=== PATIENT | male | born 1965 | race African-American/Black ===

== ENCOUNTER 2017-01-20 10:14 | Inpatient (IN) | payer OTHER ==
[2017-01-20 12:50] VITALS: BMI 19.0
--- NOTE | 2017-01-20 14:25 | HP ---
CIWA Score - CIWA Score Nausea/Vomitin-Int. Nausea w/Dry Heave Muscle Tremors: 4-Moderate,w/Arms Extend Anxiety: 4-Mod. Anxious/Guarded Agitation: 4-Moderately Restless Paroxysmal Sweats: 1-Minimal Palms Moist Orientation: 0-Oriented Tacttile Disturbances: 3-Moderate Itch/Numb/Burn Auditory Disturbances: 0-None Visual Disturbances: 0-None Headache: 1-Very Mild CIWA-Ar Total Score: 21 Admission ROS BHS - HPI Chief Complaint: DETOX TX FOR ALCOHOL DEPENDENCE Allergies/Adverse Reactions: Allergies Allergy/AdvReac Type Severity Reaction Status Date / Time No Known Allergies Allergy Verified 01/20/17 13:19 History of Present Illness: 51 Y/O AA/MALE WITH A HX OF ALCOHOL AND CRACK DEPENDENCE SEEKING DETOX TX Exam Limitations: No Limitations - Ebola screening Have you traveled outside of the country in the last 21 days: No Have you had contact with anyone from an Ebola affected area: No Have you been sick,other than usual withdrawal symptoms: No - Review of Systems Constitutional: Loss of Appetite, Night Sweats, Changes in sleep, Unintentional Wgt. Loss EENT: reports: Blurred Vision, Hearing Loss (BOTH EARS), Dental Problems ( MISSING TEETH) Respiratory: reports: Shortness of Breath (HX ASTHMA), Wheezing Cardiac: reports: Lightheadedness GI: reports: Constipated, Diarrhea, Nausea, Poor Appetite, Poor Fluid Intake, Indigestion, Abdominal cramping : reports: Dysuria Musculoskeletal: reports: Back Pain, Joint Pain, Muscle Pain Integumentary: reports: No Symptoms Reported Neuro: reports: Headache, Tremors, Unsteady Gait, Dizziness Endocrine: reports: No Symptoms Reported Hematology: reports: Anemia Psychiatric: reports: Orientated x3, Anxious Other Systems: Reviewed and Negative Patient History - Patient Medical History Hx Anemia: Yes (NO MEDS) Hx Asthma: Yes (MDI) Hx Chronic Obstructive Pulmonary Disease (COPD): No Hx Cancer: No Hx Cardiac Disorders: Yes ([place] X 1 IN 2014-[facility]; IRREGULAR HR ) Hx Congestive Heart Failure: No Hx Hypertension: No Hx Hypercholesterolemia: Yes (NO MED) Hx Pacemaker: No HX Cerebrovascular Accident: No Hx Seizures: No Hx Dementia: No Hx Diabetes: No Hx Gastrointestinal Disorders: Yes (GERD-FORGOT NAME OF MED;OVER A YEAR AGO.) Hx Liver Disease: No Hx Genitourinary Disorders: No Hx Sexually Transmitted Disorders: No Hx Renal Disease (ESRD): No Hx Thyroid Disease: No Hx Human Immunodeficiency Virus (HIV): No (NEGATIVE HX) Hx Hepatitis C: No (NEGATIVE) Hx Depression: Yes (ON PAXIL) Hx Suicide Attempt: No (DENIES) Hx Bipolar Disorder: Yes Hx Schizophrenia: No - Patient Surgical History Past Surgical History: Yes Hx Neurologic Surgery: No Hx Cataract Extraction: No Hx Cardiac Surgery: No Hx Lung Surgery: No Hx Breast Surgery: No Hx Breast Biopsy: No Hx Abdominal Surgery: Yes (hernia repair 2004) Hx Appendectomy: No Hx Cholecystectomy: No Hx Genitourinary Surgery: No Hx Section: No Hx Orthopedic Surgery: Yes (LT ARM fx 10 YRS old) Other Surgical History: left inguinal hernia repair Anesthesia Reaction: No - PPD History Previous Implant?: Yes Documented Results: Negative w/proof Implanted On Prior [facility] Admission?: Yes Date: 02/25/16 Results: 0 mm PPD to be Administered?: No - Reproductive History Patient is a Female of Child Bearing Age (11 -55 yrs old): No (MALE) - Smoking Cessation Smoking history: Current every day smoker Have you smoked in the past 12 months: Yes Aproximately how many cigarettes per day: 6 Hx Chewing Tobacco Use: No Initiated information on smoking cessation: Yes 'Breaking Loose' booklet given: 01/20/17 - Substance & Tx. History Hx Alcohol Use: Yes (BEER/VODKA) Hx Substance Use: Yes (CRACK) Substance Use Type: Alcohol, Cocaine Hx Substance Use Treatment: Yes ([facility]DETOX) - Substances Abused Alcohol Route: Oral Frequency: Daily Amount used: vodka(2 pints)/beer(1 case-24 oz cans) Age of first use: 26 Date of Last Use: 01/18/17 Cocaine Route: Smoking Frequency: Daily Amount used: $60 Age of first use: 31 Date of Last Use: 01/18/17 Family Disease History - Family Disease History Family Disease History: Heart Disease: Mother (arthritis, of heart attack), Other: Mother Admission Physical Exam BHS - Vital Signs Vital Signs: Vital Signs - 24 hr 01/20/17 12:48 Temperature 98 F Pulse Rate 75 Respiratory 20 Rate Blood Pressure 135/61 - Physical General Appearance: Yes: Moderate Distress, Irritable, Anxious HEENTM: Yes: EOMI, Normocephalic, [place], Pharynx Normal Respiratory: Yes: Chest Non-Tender, Lungs Clear, Normal Breath Sounds, No Respiratory Distress Neck: Yes: Supple, Trachea in good position Breast: Yes: Breast Exam Deferred Cardiology: Yes: Regular Rhythm, Regular Rate, S1, S2 Abdominal: Yes: Normal Bowel Sounds, Non Tender, Flat, Soft Genitourinary: Yes: Other (N/C) Back: Yes: Within Normal Limits Musculoskeletal: Yes: full range of Motion, Gait Steady Extremities: Yes: Normal Range of Motion, Non-Tender, Tremors 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 (3) Nicotine dependence Current Visit: Yes Status: Acute Qualifiers: Nicotine product type: cigarettes Substance use status: in withdrawal Qualified Code(s): F17.213 - Nicotine dependence, cigarettes, with withdrawal (4) Asthma Current Visit: Yes Status: Chronic Qualifiers: Asthma severity: mild intermittent (5) History of anemia Current Visit: Yes Status: Suspected (6) GERD (gastroesophageal reflux disease) Current Visit: Yes Status: Suspected Qualifiers: Esophagitis presence: without esophagitis Qualified Code(s): K21.9 - Gastro-esophageal reflux disease without esophagitis Comment: NO CURRENT MED (7) History of hypercholesterolemia Current Visit: Yes Status: Suspected Comment: NO MEDS (8) Status post myocardial infarction Current Visit: Yes Status: Resolved Cleared for Admission [facility] - Detox or Rehab [facility] Level of Care: Medically Managed Detox Regimen/Protocol: Librium [facility] Breath Alcohol Content Breath Alcohol Content: 0 Urine Drug Screen - Results Drug Screen Negative: No Urine Drug Screen Results: MTD-Methadone
[2017-01-20] MEDS ORDERED: MAG HYDROX/AL HYDROX/SIMETH 30 ML UNIT-DOSE CUP PO PRN (14:35)
[2017-01-20] MEDS ORDERED: NICOTINE POLACRILEX 2 MG GUM BC PRN (14:35)
[2017-01-20] MEDS ORDERED: LOPERAMIDE HCL 2 MG CAPSULE PO PRN (14:35)
[2017-01-20] MEDS ORDERED: MENTHOL/PHENOL 1 EACH UD MM PRN (14:35)
[2017-01-20] MEDS ORDERED: MAGNESIUM HYDROX 2400MG/30ML ORAL SUSPENSION 30 ML CUP PO PRN (14:35)
[2017-01-20] MEDS ORDERED: chlordiazePOXIDE HCL 25 MG CAPSULE PO PRN (14:35)
[2017-01-20] MEDS ORDERED: ACETAMINOPHEN 325 MG TABLET (FP) PO PRN (14:35)
[2017-01-20] MEDS ORDERED: guaiFENesin/D-METHORPHAN HB 10 ML UNIT-DOSE CUPS PO PRN (14:35)
[2017-01-20] MEDS ORDERED: P-EPHED 60MG/TRIPROLIDI 2.5MG TABLET PO PRN (14:35)
[2017-01-20] MEDS ORDERED: IBUPROFEN 400 MG TABLET (FP) PO PRN (14:35)
[2017-01-20] MEDS ORDERED: MAGNESIUM CITRATE 300 ML BOTTLE PO PRN (14:35)
[2017-01-20] MEDS ORDERED: hydrOXYzine PAMOATE 25 MG CAPSULE (FP) PO PRN (14:35)
[2017-01-20] MEDS ORDERED: ALBUTEROL SO4 6.7 GM HFA INHALER IH PRN (14:37)
[2017-01-20] MEDS ORDERED: chlordiazePOXIDE HCL 25 MG CAPSULE PO ONE (16:00)
[2017-01-20] MEDS: chlordiazePOXIDE HCL 25 MG CAPSULE PO SCH ×2 (17:55→22:43)
[2017-01-20] MEDS: THIAMINE HCL 100 MG TABLET (FP) PO SCH (22:43)
[2017-01-21 03:05] LABS: URINE APPEARANCE CLEAR; URINE BILIRUBIN NEGATIVE (NEGATIVE); URINE BLOOD NEGATIVE (NEGATIVE); URINE COLOR LTYELLOW; URINE GLUCOSE (UA) NEGATIVE (NEGATIVE); URINE KETONE NEGATIVE (NEGATIVE); URINE LEUK ESTERASE NEGATIVE (NEGATIVE); URINE NITRITE NEGATIVE (NEGATIVE); URINE PROTEIN NEGATIVE (NEGATIVE); URINE UROBILINOGEN NEGATIVE E.U./dl (0.2-1.0)
[2017-01-21] MEDS: chlordiazePOXIDE HCL 25 MG CAPSULE PO SCH ×4 (05:51→22:22)
[2017-01-21] MEDS ORDERED: METHADONE HCL 40 MG DISPERSABLE TABLET PO ONE (09:07)
[2017-01-21 10:06] LABS: MCH 33.2 pg (25.7-33.7); MCHC 34.9 g/dl (32.0-35.9); MEAN CELL VOLUME 94.9 fl (80-96); MEAN PLT VOLUME 8.6 fl (7.5-11.1); PLATELET COUNT 295 K/MM3 (134-434); RDW 13.9 % (11.9-15.9); WHITE BLOOD COUNT 3.8 K/mm3 (4.0-10.0)
[2017-01-21 10:29] LABS: ALBUMIN 3.6 g/dl (3.4-5.0); ALK PHOS 135 U/L (45-117); ANION GAP 10 (8-16); BILIRUBIN,TOTAL 0.3 mg/dL (0.2-1.0); CO2 26 mmol/L (21-32); COCKROFT - GAULT 83.63; CREATININE 0.8 mg/dL (0.7-1.3); GLUCOSE,RANDOM 120 mg/dL (74-106); SGOT/AST 30 U/L (15-37); SGPT/ALT 44 U/L (12-78); TOT PROT 7.7 g/dl (6.4-8.2)
--- NOTE | 2017-01-21 10:30 | PN ---
[facility] CIWA - CIWA Score Nausea/Vomitin Muscle Tremors: 3 Anxiety: 3 Agitation: 2 Paroxysmal Sweats: 1-Minimal Palms Moist Orientation: 0-Oriented Tacttile Disturbances: 1-Very Mild Itch/Numbness Auditory Disturbances: 1-Very Mild Visual Disturbances: 1-Very Mild Sensitivity Headache: 2-Mild CIWA-Ar Total Score: 17 BHS Progress Note (SOAP) Subjective: ALERT,IRRITABLE,ANXIOUS,INTERRUPTED SLEEP,TREMOR Objective: 01/21/17 10:28 Vital Signs Temperature 96.8 F L 01/21/17 10:00 Pulse Rate 83 01/21/17 10:00 Respiratory Rate 16 01/21/17 10:00 Blood Pressure 132/68 01/21/17 10:00 O2 Sat by Pulse Oximetry (%) EKG NSR,LVH,INVERTED T IN V4 TO V6 Laboratory Last Values WBC 3.8 K/mm3 (4.0-10.0) L 01/21/17 06:00 RBC 3.89 M/mm3 (4.00-5.60) L 01/21/17 06:00 Hgb 12.9 GM/dL (11.7-16.9) 01/21/17 06:00 Hct 37.0 % (35.4-49) 01/21/17 06:00 MCV 94.9 fl (80-96) 01/21/17 06:00 MCHC 34.9 g/dl (32.0-35.9) 01/21/17 06:00 RDW 13.9 % (11.9-15.9) 01/21/17 06:00 Plt Count 295 K/MM3 (134-434) 01/21/17 06:00 MPV 8.6 fl (7.5-11.1) D 01/21/17 06:00 Urine Color Ltyellow 01/20/17 23:24 Urine Appearance Clear 01/20/17 23:24 Urine pH 8.0 (5.0-8.0) 01/20/17 23:24 Ur Specific [place] 1.010 (1.001-1.035) 01/20/17 23:24 Urine Protein Negative (NEGATIVE) 01/20/17 23:24 Urine Glucose (UA) Negative (NEGATIVE) 01/20/17 23:24 Urine Ketones Negative (NEGATIVE) 01/20/17 23:24 Urine Blood Negative (NEGATIVE) 01/20/17 23:24 Urine Nitrite Negative (NEGATIVE) 01/20/17 23:24 Urine Bilirubin Negative (NEGATIVE) 01/20/17 23:24 Urine Urobilinogen Negative E.U./dl (0.2-1.0) 01/20/17 23:24 Ur Leukocyte Esterase Negative (NEGATIVE) 01/20/17 23:24 LABS PENDING Assessment: 01/21/17 10:30 WITHDRAWAL SYMPTOM Plan: CONTINUE DETOX
[2017-01-21] MEDS: NICOTINE 14 MG/24 HOURS TOPICAL PATCH TD SCH ×2 (10:39)
[2017-01-21] MEDS: PRENATAL VITAMINS W/ FOLIC ACID TABLET (FP) PO SCH (10:39)
--- NOTE | 2017-01-21 11:29 | CONSULT ---
[facility] Psychiatric Consult - Data Date of interview: 01/21/17 Admission source: [facility] Identifying data: Another admission to [facility] for this 51 y/o AA male seeking detox treatment for alcohol and cocaine dependence.Patient is single without children,domiciled,unemployed and supported on SSI benefits. Substance Abuse History: - Smoking Cessation. Smoking history: Current every day smoker. Have you smoked in the past 12 months: Yes. Aproximately how many cigarettes per day: 6. Hx Chewing Tobacco Use: No. Initiated information on smoking cessation: Yes. 'Breaking Loose' booklet given: 01/20/17. - Substance & Tx. History. Hx Alcohol Use: Yes (BEER/VODKA). Hx Substance Use: Yes (CRACK) . Substance Use Type: Alcohol, Cocaine. Hx Substance Use Treatment: Yes ([facility] -DETOX). - Substances Abused. Alcohol. Route: Oral. Frequency: Daily. Amount used: vodka(2 pints)/beer(1 case-24 oz cans). Age of first use: 26. Date of Last Use: 01/18/17. Cocaine. Route: Smoking. Frequency: Daily. Amount used: $60. Age of first use: 31. Date of Last Use: 01/18/17 Medical History: Bronchial asthma,hypercholesterolemia,prior left inguinal herniorraphy,anemia,GERD,osteoarthritis and a past history of myocardial infarction in 2013 (treated at [facility]). Psychiatric History: No history of psychiatric hospitalizations.First contact with Psychiatry : 2002.Diagnosed with MDD/Anxiety Disorder.Prescribed paxil ( dose not recalled).Mr Serrato reports no affiliation with mental health OPD providers for " more than a year ." No medications.He gets occasional scripts for paroxetine (20 mg/day) from his primary care physician at the [facility].Patient is still on methadone maintenance (40 mg/day) at the [facility] MMTP program.No history of suicide attempts. Physical/Sexual Abuse/Trauma History: No history. Additional Comment: Urine Drug Screen Results: MTD-Methadone.Noted. Mental Status Exam - Mental Status Exam Alert and Oriented to: Time, Place, Person Cognitive Function: Good Patient Appearance: Well Groomed (thin frame) Mood: Withdrawn, Anxious, Hopeful Affect: Mood Congruent Patient Behavior: Fatigued, Appropriate, Cooperative Speech Pattern: Clear Voice Loudness: Normal Thought Process: Goal Oriented Thought Disorder: Not Present Hallucinations: Denies Suicidal Ideation: Denies Homicidal Ideation: Denies Insight/Judgement: Poor Sleep: Fair Appetite: Good Muscle strength/Tone: Normal Gait/Station: Normal Psychiatric Findings - Problem List ([place] 1, 2,3) (1) Alcohol dependence with uncomplicated withdrawal Current Visit: Yes Status: Acute (2) Cocaine dependence Current Visit: Yes Status: Acute (3) Opioid dependence on agonist therapy Current Visit: Yes Status: Acute (4) Nicotine dependence Current Visit: Yes Status: Acute Qualifiers: Nicotine product type: cigarettes Substance use status: in withdrawal Qualified Code(s): F17.213 - Nicotine dependence, cigarettes, with withdrawal (5) Substance induced mood disorder Current Visit: Yes Status: Acute (6) Mood disorder Current Visit: Yes Status: Chronic (7) Asthma Current Visit: Yes Status: Chronic Qualifiers: Asthma severity: mild intermittent (8) History of anemia Current Visit: Yes Status: Suspected - Initial Treatment Plan Initial Treatment Plan: Psychoeducation done.Detoxification in progress.Medication (patient's request) : paxil 10 mg po daily.Side effects/ benefits discussed with patient.Observation.
[2017-01-21 12:58] LABS: HIV 1 & 2 AB NEGATIVE; HIV 1 AGp24 NEGATIVE
--- NOTE | 2017-01-21 13:15 | EKG ---
Test Reason : Blood Pressure : / mmHG Vent. Rate : 068 BPM Atrial Rate : 068 BPM P-R Int : 182 ms QRS Dur : 092 ms QT Int : 414 ms P-R-T Axes : 064 051 053 degrees QTc Int : 440 ms NORMAL SINUS RHYTHM MINIMAL VOLTAGE CRITERIA FOR LVH, MAY BE NORMAL VARIANT NONSPECIFIC T WAVE ABNORMALITY ABNORMAL ECG NO PREVIOUS ECGS AVAILABLE Confirmed by KRISH MCDOWELL, DONNA ([id number]) on 01/21/2017 1:15:01 PM Referred By: Confirmed By:DONNA RUTHERFORD MD
[2017-01-21] MEDS: THIAMINE HCL 100 MG TABLET (FP) PO SCH (22:22)
[2017-01-21] MEDS: diphenhydrAMINE HCL 50 MG CAPSULE PO PRN (22:22)
[2017-01-22] MEDS: METHADONE HCL 40 MG DISPERSABLE TABLET PO SCH (05:25)
[2017-01-22] MEDS: chlordiazePOXIDE HCL 25 MG CAPSULE PO SCH ×2 (05:25→10:12)
[2017-01-22] MEDS: PRENATAL VITAMINS W/ FOLIC ACID TABLET (FP) PO SCH (10:11)
[2017-01-22] MEDS: PARoxetine HCL 10 MG TABLET (FP) PO SCH (10:12)
[2017-01-22] MEDS: NICOTINE 14 MG/24 HOURS TOPICAL PATCH TD SCH (10:12)
--- NOTE | 2017-01-22 10:15 | PN ---
S CIWA - CIWA Score Nausea/Vomitin Muscle Tremors: 3 Anxiety: 3 Agitation: 2 Paroxysmal Sweats: 1-Minimal Palms Moist Orientation: 0-Oriented Tacttile Disturbances: 1-Very Mild Itch/Numbness Auditory Disturbances: 1-Very Mild Visual Disturbances: 1-Very Mild Sensitivity Headache: 2-Mild CIWA-Ar Total Score: 17 BHS Progress Note (SOAP) Subjective: ALERT,IRRITABLE,ANXIOUS,INTERRUPTED SLEEP,TREMOR Objective: 01/22/17 10:13 Vital Signs Temperature 98.1 F 01/22/17 05:53 Pulse Rate 76 01/22/17 05:53 Respiratory Rate 18 01/22/17 05:53 Blood Pressure 127/61 01/22/17 05:53 O2 Sat by Pulse Oximetry (%) Laboratory Last Values WBC 3.8 K/mm3 (4.0-10.0) L 01/21/17 06:00 RBC 3.89 M/mm3 (4.00-5.60) L 01/21/17 06:00 Hgb 12.9 GM/dL (11.7-16.9) 01/21/17 06:00 Hct 37.0 % (35.4-49) 01/21/17 06:00 MCV 94.9 fl (80-96) 01/21/17 06:00 MCHC 34.9 g/dl (32.0-35.9) 01/21/17 06:00 RDW 13.9 % (11.9-15.9) 01/21/17 06:00 Plt Count 295 K/MM3 (134-434) 01/21/17 06:00 MPV 8.6 fl (7.5-11.1) D 01/21/17 06:00 Sodium 138 mmol/L (136-145) 01/21/17 06:00 Potassium 4.3 mmol/L (3.5-5.1) 01/21/17 06:00 Chloride 102 mmol/L (98-107) 01/21/17 06:00 Carbon Dioxide 26 mmol/L (21-32) 01/21/17 06:00 Anion Gap 10 (8-16) 01/21/17 06:00 BUN 11 mg/dL (7-18) D 01/21/17 06:00 Creatinine 0.8 mg/dL (0.7-1.3) 01/21/17 06:00 Creat Clearance w eGFR > 60 (>60) 01/21/17 06:00 Random Glucose 120 mg/dL (74-106) H D 01/21/17 06:00 Calcium 9.0 mg/dL (8.5-10.1) 01/21/17 06:00 Total Bilirubin 0.3 mg/dL (0.2-1.0) 01/21/17 06:00 AST 30 U/L (15-37) D 01/21/17 06:00 ALT 44 U/L (12-78) D 01/21/17 06:00 Alkaline Phosphatase 135 U/L (45-117) H D 01/21/17 06:00 Total Protein 7.7 g/dl (6.4-8.2) 01/21/17 06:00 Albumin 3.6 g/dl (3.4-5.0) 01/21/17 06:00 Urine Color Ltyellow 01/20/17 23:24 Urine Appearance Clear 01/20/17 23:24 Urine pH 8.0 (5.0-8.0) 01/20/17 23:24 Ur Specific [place] 1.010 (1.001-1.035) 01/20/17 23:24 Urine Protein Negative (NEGATIVE) 01/20/17 23:24 Urine Glucose (UA) Negative (NEGATIVE) 01/20/17 23:24 Urine Ketones Negative (NEGATIVE) 01/20/17 23:24 Urine Blood Negative (NEGATIVE) 01/20/17 23:24 Urine Nitrite Negative (NEGATIVE) 01/20/17 23:24 Urine Bilirubin Negative (NEGATIVE) 01/20/17 23:24 Urine Urobilinogen Negative E.U./dl (0.2-1.0) 01/20/17 23:24 Ur Leukocyte Esterase Negative (NEGATIVE) 01/20/17 23:24 RPR Titer Nonreactive (NONREACTIVE) 01/21/17 06:00 HIV 1&2 Antibody Screen Negative 01/20/17 14:00 HIV P24 Antigen Negative 01/20/17 14:00 Assessment: 01/22/17 10:14 WITHDRAWAL SYMPTOM Plan: CONTINUE DETOX,BGM MONITORING,INITIAL GLUCOSE IS 120
[2017-01-22] MEDS: chlordiazePOXIDE 5 MG CAPSULE PO SCH ×2 (17:32→22:01)
[2017-01-22] MEDS: diphenhydrAMINE HCL 50 MG CAPSULE PO PRN (22:01)
[2017-01-22] MEDS: THIAMINE HCL 100 MG TABLET (FP) PO SCH (22:01)
[2017-01-23] MEDS: METHADONE HCL 40 MG DISPERSABLE TABLET PO SCH (06:00)
[2017-01-23] MEDS: chlordiazePOXIDE 5 MG CAPSULE PO SCH ×2 (06:00→11:10)
[2017-01-23] MEDS: PRENATAL VITAMINS W/ FOLIC ACID TABLET (FP) PO SCH (11:10)
[2017-01-23] MEDS: NICOTINE 14 MG/24 HOURS TOPICAL PATCH TD SCH (11:10)
[2017-01-23] MEDS: PARoxetine HCL 10 MG TABLET (FP) PO SCH (11:10)
--- NOTE | 2017-01-23 11:38 | PN ---
S Progress Note (SOAP) Subjective: ALERT,IRRITABLE,ANXIOUS,INTERRUPTED SLEEP Objective: 01/23/17 11:38 Vital Signs Temperature 97.3 F L 01/23/17 09:53 Pulse Rate 74 01/23/17 09:53 Respiratory Rate 18 01/23/17 09:53 Blood Pressure 121/70 01/23/17 09:53 O2 Sat by Pulse Oximetry (%) 01/23/17 11:39 BGM 286 Assessment: 01/23/17 11:39 WITHDRAWAL SYMPTOM Plan: NCS DIET,D/C ENSURE,GLUCERNA 1 CAN PO BID,BGM MONITORING DISCHARGE IN AM
[2017-01-23] MEDS: chlordiazePOXIDE HCL 10 MG CAPSULE PO SCH ×2 (17:37→22:45)
[2017-01-23] MEDS: THIAMINE HCL 100 MG TABLET (FP) PO SCH (22:45)
[2017-01-23] MEDS: diphenhydrAMINE HCL 50 MG CAPSULE PO PRN (22:45)
[2017-01-24] MEDS: chlordiazePOXIDE HCL 10 MG CAPSULE PO SCH ×2 (05:10→10:13)
[2017-01-24] MEDS: METHADONE HCL 40 MG DISPERSABLE TABLET PO SCH (05:10)
[2017-01-24 06:19] VITALS: PULSE 82
--- NOTE | 2017-01-24 08:17 | PN ---
S Progress Note (SOAP) Subjective: ALERT,NO COMPLAINT Objective: 01/24/17 08:14 Vital Signs Temperature 97.9 F 01/24/17 06:19 Pulse Rate 82 01/24/17 06:19 Respiratory Rate 18 01/24/17 06:19 Blood Pressure 125/66 01/24/17 06:19 O2 Sat by Pulse Oximetry (%) Assessment: 01/24/17 08:15 DETOX COMPLETED,NO WITHDRAWAL SYMPTOM Plan: DISCHARGE TODAY,FOLLOW UP WITH AFTER CARE PROGRAM ARRANGEMENT
--- NOTE | 2017-01-24 08:22 | DS ---
[facility] Detox Discharge Summary Admission Date: 01/20/17 Discharge Date: 01/24/17 - History Present History: Alcohol Dependence, MMTP Additional Comments: FOLLOW UP WITH AFTER CARE PROGRAM ARRANGEMENT Pertinent Past History: ASTHMA DEPRESSION - Physical Exam Results Vital Signs: Vital Signs Temperature 97.9 F 01/24/17 06:19 Pulse Rate 82 01/24/17 06:19 Respiratory Rate 18 01/24/17 06:19 Blood Pressure 125/66 01/24/17 06:19 O2 Sat by Pulse Oximetry (%) Pertinent Admission Physical Exam Findings: WITHDRAWAL SYMPTOM - Treatment Hospital Course: Detox Protocol Followed, Detoxed Safely, Responded well, Discharged Condition Good Patient has Accepted a Rehab Referral to: DECLINED - Medication Discharge Medications: Ambulatory Orders Albuterol Sulfate Inhaler - [Ventolin HFA Inhaler -] 2 inh PO Q4H PRN 09/10/13 Paroxetine HCl [Paxil -] 20 mg PO DAILY #30 tablet 08/15/16 Paroxetine HCl [Paxil] 10 mg PO DAILY #30 ml 01/21/17 - Diagnosis (1) Alcohol dependence with uncomplicated withdrawal Current Visit: Yes Status: Acute (2) Cocaine dependence Current Visit: Yes Status: Acute (3) Nicotine dependence Current Visit: Yes Status: Acute Qualifiers: Nicotine product type: cigarettes Substance use status: in withdrawal Qualified Code(s): F17.213 - Nicotine dependence, cigarettes, with withdrawal (4) Opioid dependence on agonist therapy Current Visit: Yes Status: Acute (5) Asthma Current Visit: Yes Status: Chronic Qualifiers: Asthma severity: mild intermittent (6) MDD (major depressive disorder) Current Visit: No Status: Acute - AMA Did Patient Leave Against Medical Advice: No
--- NOTE | 2017-01-24 08:31 | PN ---
[facility] Progress Note Note: ADDENDUM BGM IS 115,INITIAL GLUCOSE IS 120,HAS ONE SPIKE OF BGM 286 ADVISE DIET MODIFICATION,FOLLOW UP WITH PMD FOR MEDICAL PROBLEM AND FOLLOW UP FOR GLUCOSE MONITORING
[2017-01-24] MEDS: PARoxetine HCL 10 MG TABLET (FP) PO SCH (10:13)
[2017-01-24] MEDS: PRENATAL VITAMINS W/ FOLIC ACID TABLET (FP) PO SCH (10:14)
[2017-01-24] MEDS: NICOTINE 14 MG/24 HOURS TOPICAL PATCH TD SCH (10:14)
[2017-01-24 11:48] VITALS: BP 120/66; TEMP 97.7
== END 2017-01-24 13:35 | disposition other institution (70) | DRG 773 ==
LOC: YASAS 10:14 → Y6N 14:31
PROVIDERS: ADMIT Internal Medicine Addiction Medicine; ATTEND Internal Medicine Addiction Medicine
PROC: HZ2ZZZZ Detoxification Services for Substance Abuse Treatment (ICD-10-PCS; principal; 2017-01-24)
DX: F11.20 Opioid dependence, uncomplicated (principal); F10.230 Alcohol dependence with withdrawal, uncomplicated; F14.20 Cocaine dependence, uncomplicated; F17.210 Nicotine dependence, cigarettes, uncomplicated; F33.9 Major depressive disorder, recurrent, unspecified; F19.24 Other psychoactive substance dependence with psychoactive substance-induced mood disorder; J45.20 Mild intermittent asthma, uncomplicated; D64.9 Anemia, unspecified
CPT/HCPCS: 36415; 80053; 81003; 85027; 86593; 87389; 93005; 93010

== ENCOUNTER 2017-01-24 13:41 | Inpatient (IN) | payer OTHER ==
--- NOTE | 2017-01-24 13:58 | HP ---
Psychiatrist Admission - Data Date of interview: 01/24/17 Admission source: 6N Identifying data: This is the second [facility] admission for this 51 years old single Black male, unemployed on SSI, domiciled Medical History: Significant for Bronchial asthma, hypercholesterolemia, prior left inguinal herniorraphy, anemia, GERD, osteoarthritis and a past history of myocardial infarction in 2013 (treated at [facility]). Patient is on methadone 40 mg/day. Smokes 6 cigarettes daily Psychiatric History: Reports that his first psychiatric contact was in 2002 when he was diagnosed with MDD and prescribed Paxil. Denies history of previous psychiatric hospitalization or suicidal attempt. Reports not receiving OPD care for more than a year but he is prescribed Paxil 20 mg po daily by his PCP from [facility] Physical/Sexual Abuse/Trauma History: Denies history of emotional, physical or sexual abuse as well as DV relationship. No service Additional Comment: Reports history of one misdemeanor arrests in 1991. Denies being on probation at present Allergies/Adverse Reactions: Allergies Allergy/AdvReac Type Severity Reaction Status Date / Time No Known Allergies Allergy Verified 01/20/17 13:19 Date of last physical exam: 01/20/17 Concur with the findings of this exam: Yes - Substance Abuse/Tx History Hx Alcohol Use: Yes Hx Substance Use: Yes Substance Use Type: Alcohol (Started drinking alcohol at age 26, consumes 2 pints of vodka & one of 24oz of beer daily. Last drink on 01/18/17), Cocaine (Started smoking crack cocaine at age31, comsumes $60 worth daily. Last smoked on 01/18/17), Opiates (Patient attends [facility] and he is on methadone 40 mg/day) Hx Substance Use Treatment: Yes (5 previous inpt detox & one inpt rehab @ [facility]) - Admission Criteria Previous failed treatment: No Poor recovery environment: Yes Comorbidities: Yes Lacks judgement: Yes Mental Status Exam - Mental Status Exam Alert and Oriented to: Time, Place, Person Cognitive Function: Fair Patient Appearance: Well Groomed, Disheveled Mood: Hopeful, Euthymic Patient Behavior: Cooperative (but sleepy) Speech Pattern: Clear Voice Loudness: Normal Thought Process: Intact Hallucinations: Denies Suicidal Ideation: Denies Homicidal Ideation: Denies Insight/Judgement: Fair Sleep: Fair Appetite: Good Muscle strength/Tone: Normal Gait/Station: Normal Psychiatric Findings - Problem List ([place] 1, 2,3) (1) Alcohol dependence with uncomplicated withdrawal Current Visit: No Status: Acute (2) Cocaine dependence Current Visit: No Status: Acute (3) Opioid dependence on agonist therapy Current Visit: No Status: Acute (4) Nicotine dependence Current Visit: No Status: Acute Qualifiers: Nicotine product type: cigarettes Substance use status: in withdrawal Qualified Code(s): F17.213 - Nicotine dependence, cigarettes, with withdrawal (5) MDD (major depressive disorder) Current Visit: No Status: Acute (6) Asthma Current Visit: No Status: Chronic Qualifiers: Asthma severity: mild intermittent (7) GERD (gastroesophageal reflux disease) Current Visit: No Status: Suspected Qualifiers: Esophagitis presence: without esophagitis Qualified Code(s): K21.9 - Gastro-esophageal reflux disease without esophagitis Comment: NO CURRENT MED (8) History of anemia Current Visit: No Status: Suspected (9) History of hypercholesterolemia Current Visit: No Status: Suspected Comment: NO MEDS - Initial Treatment Plan Initial Treatment Plan: 1) Continue Paxil 20 mg po daily. 2) Monitor progress
[2017-01-24] MEDS ORDERED: LOPERAMIDE HCL 2 MG CAPSULE PO PRN (15:26)
[2017-01-24] MEDS ORDERED: NICOTINE POLACRILEX 2 MG GUM BUC PRN (15:26)
[2017-01-24] MEDS ORDERED: MAGNESIUM HYDROX 2400MG/30ML ORAL SUSPENSION 30 ML CUP PO PRN (15:26)
[2017-01-24] MEDS ORDERED: guaiFENesin/D-METHORPHAN HB 10 ML UNIT-DOSE CUPS PO PRN (15:26)
[2017-01-24] MEDS ORDERED: ACETAMINOPHEN 325 MG TABLET (FP) PO PRN (15:26)
[2017-01-24] MEDS ORDERED: MENTHOL/PHENOL 1 EACH UD MM PRN (15:26)
[2017-01-24] MEDS ORDERED: P-EPHED 60MG/TRIPROLIDI 2.5MG TABLET PO PRN (15:26)
[2017-01-24] MEDS ORDERED: MAGNESIUM CITRATE 300 ML BOTTLE PO PRN (15:26)
[2017-01-24] MEDS ORDERED: MAG HYDROX/AL HYDROX/SIMETH 30 ML UNIT-DOSE CUP PO PRN (15:26)
[2017-01-24] MEDS ORDERED: ALBUTEROL SO4 6.7 GM HFA INHALER IH PRN (15:27)
--- NOTE | 2017-01-24 15:28 | HP ---
[facility] Rehab Assess/Revision - Admission History Admitted to Rehab from[facility] Date of Admission to Rehab: 01/24/17 - Vital signs Vital Signs: Vital Signs Period Temp Pulse Resp BP Sys/Ramirez Pulse Ox Last 24 Hr 100.7 F-100.7 F 88 16-16 117-117/58-58 - Findings Detox History & Physical reviewed: Yes Concur with findings: Yes
[2017-01-24] MEDS: diphenhydrAMINE HCL 50 MG CAPSULE PO PRN (21:18)
[2017-01-24] MEDS: THIAMINE HCL 100 MG TABLET (FP) PO SCH (21:18)
[2017-01-25] MEDS: METHADONE HCL 40 MG DISPERSABLE TABLET PO SCH (06:19)
[2017-01-25] MEDS: NICOTINE 14 MG/24 HOURS TOPICAL PATCH TD SCH (09:43)
[2017-01-25] MEDS: PRENATAL VITAMINS W/ FOLIC ACID TABLET (FP) PO SCH (09:43)
[2017-01-25] MEDS: diphenhydrAMINE HCL 50 MG CAPSULE PO PRN (21:03)
[2017-01-25] MEDS: THIAMINE HCL 100 MG TABLET (FP) PO SCH (21:03)
[2017-01-26] MEDS: METHADONE HCL 40 MG DISPERSABLE TABLET PO SCH (06:15)
[2017-01-26] MEDS: NICOTINE 14 MG/24 HOURS TOPICAL PATCH TD SCH (09:59)
[2017-01-26] MEDS: PRENATAL VITAMINS W/ FOLIC ACID TABLET (FP) PO SCH (09:59)
[2017-01-26] MEDS: diphenhydrAMINE HCL 50 MG CAPSULE PO PRN (21:16)
[2017-01-26] MEDS: THIAMINE HCL 100 MG TABLET (FP) PO SCH (21:16)
[2017-01-27] MEDS: METHADONE HCL 40 MG DISPERSABLE TABLET PO SCH (06:03)
[2017-01-27] MEDS: NICOTINE 14 MG/24 HOURS TOPICAL PATCH TD SCH (10:37)
[2017-01-27] MEDS: PRENATAL VITAMINS W/ FOLIC ACID TABLET (FP) PO SCH (10:37)
[2017-01-27] MEDS: THIAMINE HCL 100 MG TABLET (FP) PO SCH (21:08)
[2017-01-27] MEDS: diphenhydrAMINE HCL 50 MG CAPSULE PO PRN (21:08)
[2017-01-28] MEDS: METHADONE HCL 40 MG DISPERSABLE TABLET PO SCH (05:53)
[2017-01-28] MEDS: IBUPROFEN 400 MG TABLET (FP) PO PRN ×2 (10:32→21:26)
[2017-01-28] MEDS: PRENATAL VITAMINS W/ FOLIC ACID TABLET (FP) PO SCH (10:32)
[2017-01-28] MEDS: NICOTINE 14 MG/24 HOURS TOPICAL PATCH TD SCH (10:32)
[2017-01-28] MEDS: THIAMINE HCL 100 MG TABLET (FP) PO SCH (21:26)
[2017-01-28] MEDS: diphenhydrAMINE HCL 50 MG CAPSULE PO PRN (21:26)
[2017-01-29] MEDS: METHADONE HCL 40 MG DISPERSABLE TABLET PO SCH (06:11)
[2017-01-29] MEDS: PRENATAL VITAMINS W/ FOLIC ACID TABLET (FP) PO SCH (10:07)
[2017-01-29] MEDS: NICOTINE 14 MG/24 HOURS TOPICAL PATCH TD SCH (10:08)
[2017-01-29] MEDS: IBUPROFEN 400 MG TABLET (FP) PO PRN (10:08)
[2017-01-29] MEDS: diphenhydrAMINE HCL 50 MG CAPSULE PO PRN (21:26)
[2017-01-29] MEDS: THIAMINE HCL 100 MG TABLET (FP) PO SCH (21:26)
[2017-01-30] MEDS: METHADONE HCL 40 MG DISPERSABLE TABLET PO SCH (06:00)
[2017-01-30] MEDS: NICOTINE 14 MG/24 HOURS TOPICAL PATCH TD SCH (10:26)
[2017-01-30] MEDS: PRENATAL VITAMINS W/ FOLIC ACID TABLET (FP) PO SCH (10:26)
[2017-01-30] MEDS ORDERED: IBUPROFEN 600 MG TABLET (FP) PO PRN (15:35)
[2017-01-30] MEDS: THIAMINE HCL 100 MG TABLET (FP) PO SCH (21:22)
[2017-01-30] MEDS: diphenhydrAMINE HCL 50 MG CAPSULE PO PRN (21:22)
[2017-01-31] MEDS: METHADONE HCL 40 MG DISPERSABLE TABLET PO SCH (05:55)
[2017-01-31] MEDS: PRENATAL VITAMINS W/ FOLIC ACID TABLET (FP) PO SCH (10:33)
[2017-01-31] MEDS: NICOTINE 14 MG/24 HOURS TOPICAL PATCH TD SCH (10:33)
[2017-01-31] MEDS: diphenhydrAMINE HCL 50 MG CAPSULE PO PRN (21:26)
[2017-01-31] MEDS: THIAMINE HCL 100 MG TABLET (FP) PO SCH (21:26)
[2017-02-01] MEDS: METHADONE HCL 40 MG DISPERSABLE TABLET PO SCH (05:53)
[2017-02-01] MEDS: PRENATAL VITAMINS W/ FOLIC ACID TABLET (FP) PO SCH (10:32)
[2017-02-01] MEDS: NICOTINE 14 MG/24 HOURS TOPICAL PATCH TD SCH (10:32)
[2017-02-01] MEDS: THIAMINE HCL 100 MG TABLET (FP) PO SCH (21:18)
[2017-02-01] MEDS: diphenhydrAMINE HCL 50 MG CAPSULE PO PRN (21:18)
[2017-02-02] MEDS: METHADONE HCL 40 MG DISPERSABLE TABLET PO SCH (05:53)
[2017-02-02] MEDS: PRENATAL VITAMINS W/ FOLIC ACID TABLET (FP) PO SCH (10:28)
[2017-02-02] MEDS: NICOTINE 14 MG/24 HOURS TOPICAL PATCH TD SCH (10:28)
[2017-02-02] MEDS: THIAMINE HCL 100 MG TABLET (FP) PO SCH (21:15)
[2017-02-02] MEDS: diphenhydrAMINE HCL 50 MG CAPSULE PO PRN (21:15)
[2017-02-03] MEDS: METHADONE HCL 40 MG DISPERSABLE TABLET PO SCH (05:57)
[2017-02-03 07:21] VITALS: BP 133/73; PULSE 76; TEMP 98.9
--- NOTE | 2017-02-03 09:02 | PN ---
Psychiatric Progress Note Vital Signs: Vital Signs Period Temp Pulse Resp BP Sys/Ramirez Pulse Ox Last 24 Hr 98.9 F 76 18-18 133/73 Date of Session: 02/03/17 Chief Complaint:: Discharge Note HPI: Patient addressing Alcohol and Cocaine Dependence comorbid with Opoid Dependence on Agonist Therapy, Nicotine Dependence and MDD ROS: Anemia, Asthma, GERD, Hyperlipidemia, CAD were medically managed Current Medications: Active Medications Generic Name Dose Route Start Last Admin Trade Name Freq PRN Reason Stop Dose Admin Acetaminophen 650 mg 01/24/17 15:26 Tylenol - PO Q4H PRN FEVER OR PAIN Al Hydroxide/Mg Hydroxide 30 ml 01/24/17 15:26 Mylanta Oral Suspension - PO Q6H PRN DYSPEPSIA Albuterol Sulfate 2 puff 01/24/17 15:27 Ventolin Hfa Inhaler - IH Q4H PRN ASTHMA Diphenhydramine HCl 50 mg 01/24/17 15:26 02/02/17 21:15 Benadryl - PO 50 mg HSMR1 PRN Administration FOR ITCHING Eucalyptus/Menthol/Phenol/Sorbitol 1 each 01/24/17 15:26 Cepastat Lozenge - MM Q4H PRN SORE THROAT Guaifenesin 10 ml 01/24/17 15:26 Robitussin Dm - PO Q6H PRN COUGH Ibuprofen 600 mg 01/30/17 15:35 Motrin - PO Q6H PRN PAIN Loperamide HCl 4 mg 01/24/17 15:26 Imodium - PO Q6H PRN DIARRHEA Magnesium Hydroxide 30 ml 01/24/17 15:26 Milk Of Magnesia - PO DAILY PRN CONSTIPATION Methadone HCl 40 mg 01/31/17 06:00 02/03/17 05:57 Dolophine - PO 40 mg DAILY@0600 NEHA Administration Nicotine 14 mg 01/25/17 10:00 02/02/17 10:28 Nicoderm Patch - TD 14 mg DAILY NEHA Administration Nicotine Polacrilex 2 mg 01/24/17 15:26 Nicorette Gum - BUC Q2H PRN NICOTINE REPLACEMENT RX Multivit/Folic Acid/Iron 1 tab 01/25/17 10:00 02/02/17 10:28 Vitamins (Sjr) - PO 1 tab DAILY NEHA Administration Pseudoephedrine/Triprolidine 1 combo 01/24/17 15:26 Actifed - PO TID PRN NASAL CONGESTION Thiamine HCl 100 mg 01/24/17 22:00 02/02/17 21:15 Vitamin B1 - PO 100 mg HS NEHA Administration Current Side Effect: No Lab tests ordered: Yes Lab tests reviewed: Yes Provider note:: Patient has completed this program today. He has partially met his treatment goals and will continue to address his issues in outpatient treatment at [facility]. Told senior copywriter that from his participation in this program, he has learned the importance of making meetings and have a sponsor. Script for 30 days of Paxil 20 mg po daily was electronically transmitted to [facility] at [address] [place] [address]. He is stable for discharge today Total face to face time:: 35 Mental Status Exam - Mental Status Exam Alert and Oriented to: Time, Place, Person Cognitive Function: Fair Patient Appearance: Well Groomed Mood: Hopeful, Euthymic Affect: Appropriate Patient Behavior: Cooperative Speech Pattern: Clear Voice Loudness: Normal Thought Process: Intact Thought Disorder: Not Present Hallucinations: Denies Suicidal Ideation: Denies Homicidal Ideation: Denies Insight/Judgement: Fair Sleep: Fair Appetite: Good Muscle strength/Tone: Normal Gait/Station: Normal Psychiatric Treatment Plan - Problem List (1) Alcohol dependence with uncomplicated withdrawal Current Visit: No (2) Cocaine dependence Current Visit: No (3) Opioid dependence on agonist therapy Current Visit: No (4) Nicotine dependence Current Visit: No Qualifiers: Nicotine product type: cigarettes Substance use status: in withdrawal Qualified Code(s): F17.213 - Nicotine dependence, cigarettes, with withdrawal (5) MDD (major depressive disorder) Current Visit: No (6) Asthma Current Visit: No Qualifiers: Asthma severity: mild intermittent (7) GERD (gastroesophageal reflux disease) Current Visit: No Qualifiers: Esophagitis presence: without esophagitis Qualified Code(s): K21.9 - Gastro-esophageal reflux disease without esophagitis Comment: NO CURRENT MED (8) History of anemia Current Visit: No (9) History of hypercholesterolemia Current Visit: No Comment: NO MEDS Initial treatment plan: Patient is discharged today and referred to [facility] for outpatient treatment
== END 2017-02-03 08:36 | disposition home or self-care (01) | DRG 772 ==
LOC: YASAS 13:41 → Y3W 13:43
PROVIDERS: ADMIT Psychiatry & Neurology Psychiatry; ATTEND Psychiatry & Neurology Psychiatry
PROC: HZ42ZZZ Group Counseling for Substance Abuse Treatment, Cognitive-Behavioral (ICD-10-PCS; principal; 2017-02-03)
DX: F11.20 Opioid dependence, uncomplicated (principal); F10.230 Alcohol dependence with withdrawal, uncomplicated; F14.20 Cocaine dependence, uncomplicated; F17.213 Nicotine dependence, cigarettes, with withdrawal; F33.9 Major depressive disorder, recurrent, unspecified; J45.20 Mild intermittent asthma, uncomplicated; K21.9 Gastro-esophageal reflux disease without esophagitis; E78.00 Pure hypercholesterolemia, unspecified; D64.9 Anemia, unspecified

== ENCOUNTER 2017-10-23 11:20 | Inpatient (IN) | payer OTHER ==
[2017-10-23 13:21] VITALS: BMI 18.7
--- NOTE | 2017-10-23 17:37 | HP ---
CIWA Score - CIWA Score Nausea/Vomitin-Mild Nausea/No Vomiting Muscle Tremors: 4-Moderate,w/Arms Extend Anxiety: 4-Mod. Anxious/Guarded Agitation: 4-Moderately Restless Paroxysmal Sweats: 1-Minimal Palms Moist Orientation: 0-Oriented Tacttile Disturbances: 1-Very Mild Itch/Numbness Auditory Disturbances: 0-None Visual Disturbances: 0-None Headache: 0-None Present CIWA-Ar Total Score: 15 Admission ROS S - HPI Chief Complaint: withdrawal sx Allergies/Adverse Reactions: Allergies Allergy/AdvReac Type Severity Reaction Status Date / Time No Known Allergies Allergy Verified 10/23/17 16:37 History of Present Illness: 52 years old male with long history of alcohol nicotine dependence has asthma positive ppd gerd and depression on methadone maintenance program 40mg po daily is admitted to detox Exam Limitations: No Limitations - Ebola screening Have you traveled outside of the country in the last 21 days: No (N) Have you had contact with anyone from an Ebola affected area: No Have you been sick,other than usual withdrawal symptoms: No Do you have a fever: No - Review of Systems Constitutional: Loss of Appetite, Changes in sleep, Unintentional Wgt. Loss, Unexplained wgt Loss EENT: reports: Blurred Vision (wear eye glasses) Respiratory: reports: No Symptoms reported Cardiac: reports: No Symptoms Reported GI: reports: Nausea, Poor Appetite, Poor Fluid Intake, Indigestion, Abdominal cramping : reports: No Symptoms Reported Musculoskeletal: reports: Back Pain (arthritis) Integumentary: reports: No Symptoms Reported Neuro: reports: Tremors Endocrine: reports: No Symptoms Reported Hematology: reports: No Symptoms Reported Psychiatric: reports: Judgement Intact, Orientated x3, Anxious, Depressed Other Systems: Reviewed and Negative Patient History - Patient Medical History Hx Anemia: Yes (NO MEDS) Hx Asthma: Yes (Pt is on MDI) Hx Chronic Obstructive Pulmonary Disease (COPD): No Hx Cancer: No Hx Cardiac Disorders: No Hx Congestive Heart Failure: No Hx Hypertension: Yes (NOT ON MEDS.) Hx Hypercholesterolemia: No (NO MED) Hx Pacemaker: No HX Cerebrovascular Accident: No Hx Seizures: No Hx Dementia: No Hx Diabetes: No Hx Gastrointestinal Disorders: Yes Hx Liver Disease: No Hx Genitourinary Disorders: No Hx Sexually Transmitted Disorders: No Hx Renal Disease (ESRD): No Hx Thyroid Disease: No Hx Human Immunodeficiency Virus (HIV): No (NEGATIVE HX) Hx Hepatitis C: No (NEGATIVE) Hx Depression: Yes Hx Suicide Attempt: No Hx Bipolar Disorder: No Hx Schizophrenia: No - Patient Surgical History Past Surgical History: Yes Hx Neurologic Surgery: No Hx Cataract Extraction: No Hx Cardiac Surgery: No Hx Lung Surgery: No Hx Breast Surgery: No Hx Breast Biopsy: No Hx Abdominal Surgery: Yes (hernia repair 2004) Hx Appendectomy: No Hx Cholecystectomy: No Hx Genitourinary Surgery: No Hx Orthopedic Surgery: Yes (LT ARM fx 10 YRS old) Other Surgical History: left inguinal hernia repair Anesthesia Reaction: No - PPD History Previous Implant?: Yes Documented Results: Positive w/o proof Implanted On Prior [facility] Admission?: Yes Date: 02/25/16 Results: 0mm PPD to be Administered?: No - Smoking Cessation Smoking history: Current every day smoker Have you smoked in the past 12 months: Yes Aproximately how many cigarettes per day: 6 Cigars Per Day: 0 Hx Chewing Tobacco Use: No Initiated information on smoking cessation: Yes 'Breaking Loose' booklet given: 10/23/17 - Substance & Tx. History Hx Alcohol Use: Yes Hx Substance Use: Yes Substance Use Type: Alcohol, Cocaine Hx Substance Use Treatment: Yes (02/2017 [facility] - Substances Abused Alcohol Route: Oral Frequency: Daily Amount used: 3-6 24 OZ BEERS Age of first use: 22 Date of Last Use: 10/23/17 Crack Route: Smoking Frequency: Daily Amount used: $100 AND UP Age of first use: 28 Date of Last Use: 10/21/17 Family Disease History - Family Disease History Family Disease History: Heart Disease: Mother (arthritis, of heart attack), Other: Father (no contact), Mother Admission Physical Exam S - Vital Signs Vital Signs: Vital Signs - 24 hr 10/23/17 13:16 Temperature 98.8 F Pulse Rate 70 Respiratory 20 Rate Blood Pressure 143/75 - Physical General Appearance: Yes: Appropriately Dressed, Mild Distress, Alcohol on Breath , Thin, Tremorous, Irritable, Sweating, Anxious HEENTM: Yes: Hearing grossly Normal, Normal ENT Inspection, Normocephalic, Normal Voice Respiratory: Yes: Chest Non-Tender, No Respiratory Distress, No Accessory Muscle Use, Wheezing Neck: Yes: Supple, Trachea in good position Breast: Yes: Breasts Symetrical Cardiology: Yes: Regular Rhythm, S1, S2, Tachycardia Abdominal: Yes: Non Tender, Soft, Increased Bowel Sounds Genitourinary: Yes: Within Normal Limits Back: Yes: Normal Inspection Musculoskeletal: Yes: full range of Motion, Gait Steady, Back pain Extremities: Yes: Normal Inspection, Normal Range of Motion, Non-Tender, Tremors Neurological: Yes: Fully Oriented, Alert, Motor Strength 5/5, Normal Response, Depressed Affect Integumentary: Yes: Warm Lymphatic: Yes: Within Normal Limits - Diagnostic (1) Weight loss Current Visit: Yes Status: Acute (2) Depression (emotion) Current Visit: Yes Status: Suspected Qualifiers: Depression Type: dysthymia Qualified Code(s): F34.1 - Dysthymic disorder (3) Positive PPD, treated Current Visit: Yes Status: Resolved (4) Alcohol dependence with uncomplicated withdrawal Current Visit: Yes Status: Acute (5) Asthma Current Visit: Yes Status: Chronic Qualifiers: Asthma severity: mild Asthma persistence: intermittent Asthma complication type: with status asthmaticus Qualified Code(s): J45.22 - Mild intermittent asthma with status asthmaticus (6) Methadone maintenance therapy patient Current Visit: Yes Status: Chronic Comment: 40 mg po daily verification pending (7) GERD (gastroesophageal reflux disease) Current Visit: Yes Status: Chronic Qualifiers: Esophagitis presence: without esophagitis Qualified Code(s): K21.9 - Gastro -esophageal reflux disease without esophagitis Comment: NO CURRENT MED Cleared for Admission S - Detox or Rehab [facility] Level of Care: Medically Managed Detox Regimen/Protocol: Librium [facility] Breath Alcohol Content Breath Alcohol Content: 0.018 Urine Drug Screen - Results Drug Screen Negative: No Urine Drug Screen Results: IVÁN-Cocaine, MTD-Methadone
[2017-10-23] MEDS ORDERED: MAGNESIUM HYDROX 2400MG/30ML ORAL SUSPENSION 30 ML CUP PO PRN (17:49)
[2017-10-23] MEDS ORDERED: ACETAMINOPHEN 325 MG TABLET (FP) PO PRN (17:49)
[2017-10-23] MEDS ORDERED: guaiFENesin/D-METHORPHAN HB 10 ML UNIT-DOSE CUPS PO PRN (17:49)
[2017-10-23] MEDS ORDERED: MAGNESIUM CITRATE 300 ML BOTTLE PO PRN (17:49)
[2017-10-23] MEDS ORDERED: chlordiazePOXIDE HCL 25 MG CAPSULE PO PRN (17:49)
[2017-10-23] MEDS ORDERED: NICOTINE POLACRILEX 2 MG GUM BC PRN (17:49)
[2017-10-23] MEDS ORDERED: MAG HYDROX/AL HYDROX/SIMETH 30 ML UNIT-DOSE CUP PO PRN (17:49)
[2017-10-23] MEDS ORDERED: P-EPHED 60MG/TRIPROLIDI 2.5MG TABLET PO PRN (17:49)
[2017-10-23] MEDS ORDERED: LOPERAMIDE HCL 2 MG CAPSULE PO PRN (17:49)
[2017-10-23] MEDS ORDERED: MENTHOL/PHENOL 1 EACH UD MM PRN (17:49)
[2017-10-23] MEDS ORDERED: ALBUTEROL SO4 18 GM HFA INHALER IH PRN (17:50)
[2017-10-23] MEDS ORDERED: ALBUTEROL SO4 0.083% IH SOL 2.5 MG/3 ML VIAL.NEB. NEB PRN (18:00)
[2017-10-23 20:46] LABS: URINE APPEARANCE CLEAR; URINE BILIRUBIN NEGATIVE (NEGATIVE); URINE BLOOD NEGATIVE (NEGATIVE); URINE COLOR YELLOW; URINE GLUCOSE (UA) NEGATIVE (NEGATIVE); URINE KETONE NEGATIVE (NEGATIVE); URINE LEUK ESTERASE NEGATIVE (NEGATIVE); URINE NITRITE NEGATIVE (NEGATIVE); URINE PROTEIN NEGATIVE (NEGATIVE)
[2017-10-23] MEDS: RANITIDINE HCL 150 MG TABLET (FP) PO SCH (22:17)
[2017-10-23] MEDS: METHOCARBAMOL 500 MG TABLET PO PRN (22:17)
[2017-10-23] MEDS: chlordiazePOXIDE HCL 25 MG CAPSULE PO SCH (22:17)
[2017-10-23] MEDS: NAPROXEN 500 MG TABLET (FP) PO PRN (22:17)
[2017-10-23] MEDS: THIAMINE HCL 100 MG TABLET (FP) PO SCH (22:17)
[2017-10-24] MEDS: chlordiazePOXIDE HCL 25 MG CAPSULE PO SCH ×4 (05:37→22:07)
[2017-10-24] MEDS ORDERED: METHADONE HCL 40 MG DISPERSABLE TABLET PO ONE (08:40)
[2017-10-24 09:56] LABS: HEMATOCRIT 37.8 % (35.4-49); HEMOGLOBIN 12.4 GM/dL (11.7-16.9); MCH 31.5 pg (25.7-33.7); MCHC 32.8 g/dl (32.0-35.9); MEAN PLT VOLUME 7.9 fl (7.5-11.1); PLATELET COUNT 281 K/MM3 (134-434); RBC 3.94 M/mm3 (4.00-5.60); RDW 14.4 % (11.9-15.9); WHITE BLOOD COUNT 4.1 K/mm3 (4.0-10.0)
[2017-10-24 10:22] LABS: CHLORIDE 105 mmol/L (98-107); POTASSIUM 4.3 mmol/L (3.5-5.1); SODIUM 139 mmol/L (136-145)
[2017-10-24 10:33] LABS: ALBUMIN 2.9 g/dl (3.4-5.0); ALK PHOS 98 U/L (45-117); ANION GAP 5 (8-16); BILIRUBIN,TOTAL 0.4 mg/dL (0.2-1.0); BLOOD UREA NITROGEN 16 mg/dL (7-18); CALCIUM 8.2 mg/dL (8.5-10.1); CO2 29 mmol/L (21-32); CREATININE 0.6 mg/dL (0.7-1.3); GLUCOSE,RANDOM 85 mg/dL (74-106); SGOT/AST 20 U/L (15-37); SGPT/ALT 29 U/L (12-78); TOT PROT 6.1 g/dl (6.4-8.2)
[2017-10-24] MEDS: RANITIDINE HCL 150 MG TABLET (FP) PO SCH ×2 (10:58→22:07)
[2017-10-24] MEDS: PRENATAL VITAMINS W/ FOLIC ACID TABLET (FP) PO SCH (10:58)
[2017-10-24] MEDS: NICOTINE 14 MG/24 HOURS TOPICAL PATCH TD SCH (11:02)
[2017-10-24] MEDS: PARoxetine HCL 10 MG TABLET (FP) PO SCH (11:02)
[2017-10-24] MEDS ORDERED: FLU VACCINE QUAD 60 MCG/0.5 ML (MDV 17-18) IM ONE (12:00)
--- NOTE | 2017-10-24 12:30 | PN ---
S CIWA - CIWA Score Nausea/Vomitin Muscle Tremors: 3 Anxiety: 2 Agitation: 2 Paroxysmal Sweats: 3 Orientation: 0-Oriented Tacttile Disturbances: 1-Very Mild Itch/Numbness Auditory Disturbances: 0-None Visual Disturbances: 0-None Headache: 0-None Present CIWA-Ar Total Score: 13 BHS Progress Note (SOAP) Subjective: interrupted sleep, sweats ,shakes Objective: 10/24/17 12:29 Vital Signs Temperature 98 F 10/24/17 10:00 Pulse Rate 67 10/24/17 10:00 Respiratory Rate 16 10/24/17 10:00 Blood Pressure 123/60 10/24/17 10:00 O2 Sat by Pulse Oximetry (%) Laboratory Tests 10/23/17 10/24/17 10/24/17 19:00 07:00 07:00 WBC 4.1 RBC 3.94 L Hgb 12.4 Hct 37.8 MCV 96.0 MCH 31.5 MCHC 32.8 RDW 14.4 Plt Count 281 MPV 7.9 Sodium Potassium Chloride Carbon Dioxide Anion Gap BUN Creatinine Creat Clearance w eGFR Random Glucose Calcium Total Bilirubin AST ALT Alkaline Phosphatase Total Protein Albumin Urine Color Yellow Urine Appearance Clear Urine pH 7.0 Ur Specific [place] 1.016 Urine Protein Negative Urine Glucose (UA) Negative Urine Ketones Negative Urine Blood Negative Urine Nitrite Negative Urine Bilirubin Negative Urine Urobilinogen 2.0 Ur Leukocyte Esterase Negative RPR Titer HIV 1&2 Antibody Screen Negative HIV P24 Antigen Negative 10/24/17 10/24/17 07:00 07:00 WBC RBC Hgb Hct MCV MCH MCHC RDW Plt Count MPV Sodium 139 Potassium 4.3 Chloride 105 Carbon Dioxide 29 Anion Gap 5 L BUN 16 D Creatinine 0.6 L D Creat Clearance w eGFR > 60 Random Glucose 85 D Calcium 8.2 L Total Bilirubin 0.4 D AST 20 D ALT 29 D Alkaline Phosphatase 98 D Total Protein 6.1 L D Albumin 2.9 L Urine Color Urine Appearance Urine pH Ur Specific [place] Urine Protein Urine Glucose (UA) Urine Ketones Urine Blood Urine Nitrite Urine Bilirubin Urine Urobilinogen Ur Leukocyte Esterase RPR Titer Nonreactive HIV 1&2 Antibody Screen HIV P24 Antigen pt aox 3 in nad ambulating Assessment: 10/24/17 12:30 withdrawal sx;s Plan: cont. detox increase fluids
--- NOTE | 2017-10-24 12:48 | CONSULT ---
[facility] Psychiatric Consult - Data Date of interview: 10/24/17 Admission source: [facility] Identifying data: Pt. is a 52 year old male,single, without kids, and on SSI. This is one of multiple admissions for patient. Pt. admitted to for alcohol and crack dependence. Substance Abuse History: Following information confirmed with Mr. Serrato: Smoking Cessation. Smoking history: Current every day smoker. Have you smoked in the past 12 months: Yes. Aproximately how many cigarettes per day: 6. Cigars Per Day: 0. Hx Chewing Tobacco Use: No. Initiated information on smoking cessation: Yes. 'Breaking Loose' booklet given: 10/23/17. - Substance & Tx. History. Hx Alcohol Use: Yes. Hx Substance Use: Yes. Substance Use Type : Alcohol, Cocaine. Hx Substance Use Treatment: Yes (02/2017 [facility]). - Substances Abused. Alcohol. Route: Oral. Frequency: Daily. Amount used: 3 -6 24 OZ BEERS. Age of first use: 22. Date of Last Use: 10/23/17. Crack. Route: Smoking. Frequency: Daily. Amount used: $100 AND UP. Age of first use : 28. Date of Last Use: 10/21/17 Medical History: Anemia, Asthma, Hypertension, hernia repair in 2004. Psychiatric History: Patient's first encounter with a psychiatrist was at age 15 due to behavior problems and constantly running away from home. Pt. reports two psychiatric hospitalizations with the most recent hospitalization occuring at [facility] in 2017 for depression. Pt. reports a diagnosis of MDD and anxiety. States he takes paxil but admits to nonadherence to his medications. Pt. last took paxil when he was admitted to detox at [facility] in january of 2017.Pt. requesting to restart paxil 10mg. Reports no current OPC. Pt. denies h/ o suicide attempt. Pt. denies suicidal and homicidal ideation. Physical/Sexual Abuse/Trauma History: Denies. Mental Status Exam - Mental Status Exam Alert and Oriented to: Time, Place, Person Cognitive Function: Good Patient Appearance: Well Groomed Mood: Hopeful Affect: Mood Congruent Patient Behavior: Cooperative Speech Pattern: Appropriate Voice Loudness: Normal Thought Process: Goal Oriented Thought Disorder: Not Present Hallucinations: Denies Suicidal Ideation: Denies Homicidal Ideation: Denies Insight/Judgement: Poor Sleep: Fair Appetite: Fair Muscle strength/Tone: Normal Gait/Station: Normal Psychiatric Findings - Problem List ([place] 1, 2,3) (1) Alcohol dependence with uncomplicated withdrawal Current Visit: Yes Status: Acute (2) Methadone maintenance therapy patient Current Visit: Yes Status: Chronic Comment: 40 mg po daily verification pending (3) MDD (major depressive disorder) Current Visit: Yes Status: Chronic Comment: Self reports. (4) Cocaine dependence Current Visit: Yes Status: Acute - Initial Treatment Plan Initial Treatment Plan: Psychoeducation provided. Detoxification in progress. Paxil 10mg po daily. Benefits and side effects discussed. Verbal consent given. Will continue to monitor patient.
--- NOTE | 2017-10-24 15:16 | EKG ---
Test Reason : Blood Pressure : / mmHG Vent. Rate : 067 BPM Atrial Rate : 067 BPM P-R Int : 150 ms QRS Dur : 084 ms QT Int : 414 ms P-R-T Axes : 004 055 063 degrees QTc Int : 437 ms NORMAL SINUS RHYTHM NORMAL ECG WHEN COMPARED WITH ECG OF 20-JAN-2017 14:26, NO SIGNIFICANT CHANGE WAS FOUND Confirmed by MD JESSU, FELIX ([id number]) on 10/24/2017 3:16:26 PM Referred By: Confirmed By:FELIX LEE MD
[2017-10-24] MEDS: THIAMINE HCL 100 MG TABLET (FP) PO SCH (22:07)
[2017-10-25] MEDS: chlordiazePOXIDE HCL 25 MG CAPSULE PO SCH ×3 (05:29→18:22)
[2017-10-25] MEDS: METHADONE HCL 40 MG DISPERSABLE TABLET PO SCH (05:29)
[2017-10-25] MEDS: NAPROXEN 500 MG TABLET (FP) PO PRN (10:51)
[2017-10-25] MEDS: PRENATAL VITAMINS W/ FOLIC ACID TABLET (FP) PO SCH (10:51)
[2017-10-25] MEDS: RANITIDINE HCL 150 MG TABLET (FP) PO SCH ×2 (10:51→22:37)
[2017-10-25] MEDS: NICOTINE 14 MG/24 HOURS TOPICAL PATCH TD SCH (10:51)
[2017-10-25] MEDS: PARoxetine HCL 10 MG TABLET (FP) PO SCH (10:52)
--- NOTE | 2017-10-25 13:00 | PN ---
[facility] CIWA - CIWA Score Nausea/Vomitin-No Nausea/No Vomiting Muscle Tremors: 3 Anxiety: 2 Agitation: 2 Paroxysmal Sweats: 3 Orientation: 0-Oriented Tacttile Disturbances: 0-None Auditory Disturbances: 0-None Visual Disturbances: 0-None Headache: 0-None Present CIWA-Ar Total Score: 10 S Progress Note (SOAP) Subjective: Sweating,anxiety,interrupted sleep,restless Objective: 10/25/17 12:59 Vital Signs - 8 hr 10/25/17 10/25/17 06:15 10:22 Temperature 97.5 F L 98.1 F Pulse Rate 69 75 Respiratory 18 18 Rate Blood Pressure 135/70 139/66 Laboratory Tests 10/23/17 10/24/17 10/24/17 19:00 07:00 07:00 WBC 4.1 RBC 3.94 L Hgb 12.4 Hct 37.8 MCV 96.0 MCH 31.5 MCHC 32.8 RDW 14.4 Plt Count 281 MPV 7.9 Sodium Potassium Chloride Carbon Dioxide Anion Gap BUN Creatinine Creat Clearance w eGFR Random Glucose Calcium Total Bilirubin AST ALT Alkaline Phosphatase Total Protein Albumin Urine Color Yellow Urine Appearance Clear Urine pH 7.0 Ur Specific [place] 1.016 Urine Protein Negative Urine Glucose (UA) Negative Urine Ketones Negative Urine Blood Negative Urine Nitrite Negative Urine Bilirubin Negative Urine Urobilinogen 2.0 Ur Leukocyte Esterase Negative RPR Titer HIV 1&2 Antibody Screen Negative HIV P24 Antigen Negative 10/24/17 10/24/17 07:00 07:00 WBC RBC Hgb Hct MCV MCH MCHC RDW Plt Count MPV Sodium 139 Potassium 4.3 Chloride 105 Carbon Dioxide 29 Anion Gap 5 L BUN 16 D Creatinine 0.6 L D Creat Clearance w eGFR > 60 Random Glucose 85 D Calcium 8.2 L Total Bilirubin 0.4 D AST 20 D ALT 29 D Alkaline Phosphatase 98 D Total Protein 6.1 L D Albumin 2.9 L Urine Color Urine Appearance Urine pH Ur Specific [place] Urine Protein Urine Glucose (UA) Urine Ketones Urine Blood Urine Nitrite Urine Bilirubin Urine Urobilinogen Ur Leukocyte Esterase RPR Titer Nonreactive HIV 1&2 Antibody Screen HIV P24 Antigen labs noted Assessment: 10/25/17 12:59 Withdrawal sx. Plan: Continue detox
[2017-10-25] MEDS: chlordiazePOXIDE 5 MG CAPSULE PO SCH (22:37)
[2017-10-25] MEDS: THIAMINE HCL 100 MG TABLET (FP) PO SCH (22:37)
[2017-10-26] MEDS: chlordiazePOXIDE 5 MG CAPSULE PO SCH ×3 (06:11→17:55)
[2017-10-26] MEDS: METHADONE HCL 40 MG DISPERSABLE TABLET PO SCH (06:11)
[2017-10-26] MEDS: PRENATAL VITAMINS W/ FOLIC ACID TABLET (FP) PO SCH (10:50)
[2017-10-26] MEDS: RANITIDINE HCL 150 MG TABLET (FP) PO SCH ×2 (10:50→22:57)
[2017-10-26] MEDS: METHOCARBAMOL 500 MG TABLET PO PRN (10:50)
[2017-10-26] MEDS: NICOTINE 14 MG/24 HOURS TOPICAL PATCH TD SCH (10:51)
[2017-10-26] MEDS: PARoxetine HCL 10 MG TABLET (FP) PO SCH (10:51)
--- NOTE | 2017-10-26 11:34 | PN ---
[facility] Progress Note (SOAP) Subjective: tremor sweat anxiety Objective: 10/26/17 11:34 Vital Signs Temperature 98.6 F 10/26/17 10:23 Pulse Rate 89 10/26/17 10:23 Respiratory Rate 18 10/26/17 10:23 Blood Pressure 121/61 10/26/17 10:23 O2 Sat by Pulse Oximetry (%) Laboratory Last Values WBC 4.1 K/mm3 (4.0-10.0) 10/24/17 07:00 RBC 3.94 M/mm3 (4.00-5.60) L 10/24/17 07:00 Hgb 12.4 GM/dL (11.7-16.9) 10/24/17 07:00 Hct 37.8 % (35.4-49) 10/24/17 07:00 MCV 96.0 fl (80-96) 10/24/17 07:00 MCH 31.5 pg (25.7-33.7) 10/24/17 07:00 MCHC 32.8 g/dl (32.0-35.9) 10/24/17 07:00 RDW 14.4 % (11.9-15.9) 10/24/17 07:00 Plt Count 281 K/MM3 (134-434) 10/24/17 07:00 MPV 7.9 fl (7.5-11.1) 10/24/17 07:00 Sodium 139 mmol/L (136-145) 10/24/17 07:00 Potassium 4.3 mmol/L (3.5-5.1) 10/24/17 07:00 Chloride 105 mmol/L (98-107) 10/24/17 07:00 Carbon Dioxide 29 mmol/L (21-32) 10/24/17 07:00 Anion Gap 5 (8-16) L 10/24/17 07:00 BUN 16 mg/dL (7-18) D 10/24/17 07:00 Creatinine 0.6 mg/dL (0.7-1.3) L D 10/24/17 07:00 Creat Clearance w eGFR > 60 (>60) 10/24/17 07:00 Random Glucose 85 mg/dL (74-106) D 10/24/17 07:00 Calcium 8.2 mg/dL (8.5-10.1) L 10/24/17 07:00 Total Bilirubin 0.4 mg/dL (0.2-1.0) D 10/24/17 07:00 AST 20 U/L (15-37) D 10/24/17 07:00 ALT 29 U/L (12-78) D 10/24/17 07:00 Alkaline Phosphatase 98 U/L (45-117) D 10/24/17 07:00 Total Protein 6.1 g/dl (6.4-8.2) L D 10/24/17 07:00 Albumin 2.9 g/dl (3.4-5.0) L 10/24/17 07:00 Urine Color Yellow 10/23/17 19:00 Urine Appearance Clear 10/23/17 19:00 Urine pH 7.0 (5.0-8.0) 10/23/17 19:00 Ur Specific [place] 1.016 (1.001-1.035) 10/23/17 19:00 Urine Protein Negative (NEGATIVE) 10/23/17 19:00 Urine Glucose (UA) Negative (NEGATIVE) 10/23/17 19:00 Urine Ketones Negative (NEGATIVE) 10/23/17 19:00 Urine Blood Negative (NEGATIVE) 10/23/17 19:00 Urine Nitrite Negative (NEGATIVE) 10/23/17 19:00 Urine Bilirubin Negative (NEGATIVE) 10/23/17 19:00 Urine Urobilinogen 2.0 mg/dL (0.2-1.0) 10/23/17 19:00 Ur Leukocyte Esterase Negative (NEGATIVE) 10/23/17 19:00 RPR Titer Nonreactive (NONREACTIVE) 10/24/17 07:00 HIV 1&2 Antibody Screen Negative 10/24/17 07:00 HIV P24 Antigen Negative 10/24/17 07:00 lab noted Assessment: 10/26/17 11:34 withdrawal sx Plan: continue detox
[2017-10-26] MEDS: THIAMINE HCL 100 MG TABLET (FP) PO SCH (22:57)
[2017-10-26] MEDS: chlordiazePOXIDE HCL 10 MG CAPSULE PO SCH (22:57)
[2017-10-27] MEDS: METHADONE HCL 40 MG DISPERSABLE TABLET PO SCH (05:49)
[2017-10-27] MEDS: chlordiazePOXIDE HCL 10 MG CAPSULE PO SCH ×2 (05:49→11:01)
--- NOTE | 2017-10-27 08:21 | DS ---
[facility] Detox Discharge Summary Admission Date: 10/23/17 Discharge Date: 10/27/17 - History Present History: Alcohol Dependence, Cocaine Dependence, Opioid Dependence Pertinent Past History: see below - Physical Exam Results Vital Signs: Vital Signs Temperature 98.3 F 10/27/17 06:25 Pulse Rate 79 10/27/17 06:25 Respiratory Rate 18 10/27/17 06:25 Blood Pressure 115/50 10/27/17 06:25 O2 Sat by Pulse Oximetry (%) Pertinent Admission Physical Exam Findings: admitted in acute withdrawal medically stable on dc detox completed dc today Laboratory Tests 10/23/17 10/24/17 10/24/17 19:00 07:00 07:00 WBC 4.1 RBC 3.94 L Hgb 12.4 Hct 37.8 MCV 96.0 MCH 31.5 MCHC 32.8 RDW 14.4 Plt Count 281 MPV 7.9 Sodium Potassium Chloride Carbon Dioxide Anion Gap BUN Creatinine Creat Clearance w eGFR Random Glucose Calcium Total Bilirubin AST ALT Alkaline Phosphatase Total Protein Albumin Urine Color Yellow Urine Appearance Clear Urine pH 7.0 Ur Specific [place] 1.016 Urine Protein Negative Urine Glucose (UA) Negative Urine Ketones Negative Urine Blood Negative Urine Nitrite Negative Urine Bilirubin Negative Urine Urobilinogen 2.0 Ur Leukocyte Esterase Negative RPR Titer HIV 1&2 Antibody Screen Negative HIV P24 Antigen Negative 10/24/17 10/24/17 07:00 07:00 WBC RBC Hgb Hct MCV MCH MCHC RDW Plt Count MPV Sodium 139 Potassium 4.3 Chloride 105 Carbon Dioxide 29 Anion Gap 5 L BUN 16 D Creatinine 0.6 L D Creat Clearance w eGFR > 60 Random Glucose 85 D Calcium 8.2 L Total Bilirubin 0.4 D AST 20 D ALT 29 D Alkaline Phosphatase 98 D Total Protein 6.1 L D Albumin 2.9 L Urine Color Urine Appearance Urine pH Ur Specific [place] Urine Protein Urine Glucose (UA) Urine Ketones Urine Blood Urine Nitrite Urine Bilirubin Urine Urobilinogen Ur Leukocyte Esterase RPR Titer Nonreactive HIV 1&2 Antibody Screen HIV P24 Antigen Vital Signs - 24 hr 10/26/17 10/26/17 10/26/17 10:23 14:17 17:27 Temperature 98.6 F 99.3 F 98.2 F Pulse Rate 89 84 78 Respiratory 18 18 20 Rate Blood Pressure 121/61 124/65 136/62 10/26/17 10/27/17 10/27/17 23:11 00:30 03:30 Temperature 98.1 F Pulse Rate 76 Respiratory 18 18 18 Rate Blood Pressure 136/67 10/27/17 06:25 Temperature 98.3 F Pulse Rate 79 Respiratory 18 Rate Blood Pressure 115/50 - Treatment Hospital Course: Detox Protocol Followed, Detoxed Safely, Responded well, Discharged Condition Good, Rehab Referral Accepted - Medication Discharge Medications: Ambulatory Orders Albuterol Sulfate Inhaler - [Ventolin HFA Inhaler -] 2 inh IH Q4H PRN #1 inh Paroxetine HCl [Paxil] 10 mg PO DAILY #30 ml 02/03/17 - Diagnosis (1) Alcohol dependence with uncomplicated withdrawal Current Visit: Yes Status: Acute (2) Cocaine dependence Current Visit: Yes Status: Chronic (3) Opioid dependence on agonist therapy Current Visit: Yes Status: Acute (4) Asthma Current Visit: Yes Status: Chronic Qualifiers: Asthma severity: mild Asthma persistence: intermittent Asthma complication type: with status asthmaticus Qualified Code(s): J45.22 - Mild intermittent asthma with status asthmaticus (5) GERD (gastroesophageal reflux disease) Current Visit: Yes Status: Chronic Qualifiers: Esophagitis presence: without esophagitis Qualified Code(s): K21.9 - Gastro -esophageal reflux disease without esophagitis (6) MDD (major depressive disorder) Current Visit: Yes Status: Chronic (7) Methadone maintenance therapy patient Current Visit: Yes Status: Chronic (8) History of anemia Current Visit: No Status: Suspected (9) History of hypercholesterolemia Current Visit: No Status: Suspected - AMA Did Patient Leave Against Medical Advice: No
[2017-10-27 09:21] VITALS: BP 124/66; PULSE 90; TEMP 98.2
[2017-10-27] MEDS: PARoxetine HCL 10 MG TABLET (FP) PO SCH (11:01)
[2017-10-27] MEDS: RANITIDINE HCL 150 MG TABLET (FP) PO SCH (11:01)
[2017-10-27] MEDS: PRENATAL VITAMINS W/ FOLIC ACID TABLET (FP) PO SCH (11:01)
[2017-10-27] MEDS: NICOTINE 14 MG/24 HOURS TOPICAL PATCH TD SCH (11:02)
== END 2017-10-27 11:04 | disposition home or self-care (01) | DRG 773 ==
LOC: YASAS 11:20 → Y6N 17:28
PROVIDERS: ADMIT Internal Medicine; ATTEND Internal Medicine
PROC: HZ2ZZZZ Detoxification Services for Substance Abuse Treatment (ICD-10-PCS; principal; 2017-10-23)
DX: F10.230 Alcohol dependence with withdrawal, uncomplicated (principal); F11.20 Opioid dependence, uncomplicated; F14.20 Cocaine dependence, uncomplicated; F17.210 Nicotine dependence, cigarettes, uncomplicated; F33.9 Major depressive disorder, recurrent, unspecified; F34.1 Dysthymic disorder; J45.22 Mild intermittent asthma with status asthmaticus; K21.9 Gastro-esophageal reflux disease without esophagitis; R76.11 Nonspecific reaction to tuberculin skin test without active tuberculosis; D64.9 Anemia, unspecified; Z87.898 Personal history of other specified conditions
CPT/HCPCS: 36415; 71046-TC; 80053; 81003; 85027; 86593; 87389; 93005; 93010

== ENCOUNTER 2018-03-04 09:35 | Inpatient (IN) | payer OTHER ==
[2018-03-04 10:02] VITALS: BMI 18.7
--- NOTE | 2018-03-04 13:14 | HP ---
CIWA Score - CIWA Score Nausea/Vomitin Muscle Tremors: 3 Anxiety: 3 Agitation: 3 Paroxysmal Sweats: 1-Minimal Palms Moist Orientation: 0-Oriented Tacttile Disturbances: 1-Very Mild Itch/Numbness Auditory Disturbances: 1-Very Mild Visual Disturbances: 0-None Headache: 2-Mild CIWA-Ar Total Score: 17 Admission ROS BHS - HPI Chief Complaint: i am here need help to stop drinking alcohol and crack Allergies/Adverse Reactions: Allergies Allergy/AdvReac Type Severity Reaction Status Date / Time No Known Allergies Allergy Verified 10/23/17 16:37 History of Present Illness: this 52 years old male with alcohol and cocaine dependence,seeking detox, withdrawal symptom, last detox [facility] 10/23/17 to 10/27/17 denied medical problem anxiety and depression nicotine dependence longest sobriety 8 years mmtp 40 mgs/day,last mediated yesterday 03/03/18 weight loss - Ebola screening Have you traveled outside of the country in the last 21 days: No Have you had contact with anyone from an Ebola affected area: No Have you been sick,other than usual withdrawal symptoms: No Do you have a fever: No - Review of Systems Constitutional: Loss of Appetite, Malaise, Unintentional Wgt. Loss EENT: reports: Tearing, Nose Congestion Respiratory: reports: No Symptoms reported Cardiac: reports: No Symptoms Reported GI: reports: Diarrhea, Nausea, Poor Appetite : reports: No Symptoms Reported Musculoskeletal: reports: Back Pain, Muscle Pain Integumentary: reports: Dryness Neuro: reports: Headache, Tremors Endocrine: reports: No Symptoms Reported Hematology: reports: No Symptoms Reported Psychiatric: reports: Anxious, Depressed Patient History - Patient Medical History Hx Anemia: Yes (NO MEDS) Hx Asthma: Yes (on albutrol inhaler) Hx Chronic Obstructive Pulmonary Disease (COPD): No Hx Cancer: No Hx Cardiac Disorders: No Hx Congestive Heart Failure: No Hx Hypertension: No Hx Hypercholesterolemia: No (NO MED) Hx Pacemaker: No HX Cerebrovascular Accident: No Hx Seizures: No Hx Dementia: No Hx Diabetes: No Hx Gastrointestinal Disorders: No Hx Liver Disease: No Hx Genitourinary Disorders: No Hx Sexually Transmitted Disorders: No Hx Renal Disease (ESRD): No Hx Thyroid Disease: No Hx Human Immunodeficiency Virus (HIV): No (NEGATIVE HX,last tested 03/03/18) Hx Hepatitis C: No (NEGATIVE) Hx Depression: Yes Hx Suicide Attempt: No Hx Bipolar Disorder: No Hx Schizophrenia: No Other Medical History: anxiety,no suicidal,no homicidal - Patient Surgical History Past Surgical History: Yes Hx Neurologic Surgery: No Hx Cataract Extraction: No Hx Cardiac Surgery: No Hx Lung Surgery: No Hx Breast Surgery: No Hx Breast Biopsy: No Hx Abdominal Surgery: Yes (hernia repair 2004) Hx Appendectomy: No Hx Cholecystectomy: No Hx Genitourinary Surgery: No Hx Section: No Hx Orthopedic Surgery: Yes (LT ARM fx 10 YRS old) Other Surgical History: left inguinal hernia repair Anesthesia Reaction: No - PPD History Documented Results: Positive w/proof Date: 02/25/16 Results: 0mm PPD to be Administered?: No - Smoking Cessation Smoking history: Current every day smoker Have you smoked in the past 12 months: Yes Aproximately how many cigarettes per day: 5 Cigars Per Day: 0 Hx Chewing Tobacco Use: No Initiated information on smoking cessation: Yes 'Breaking Loose' booklet given: 03/04/18 - Substances Abused Alcohol Route: Oral Frequency: Daily Amount used: 2 six packs 24 oz Age of first use: 16 Date of Last Use: 03/03/18 Crack Route: Smoking Frequency: 1-2 times per week Amount used: $100 Age of first use: 26 Date of Last Use: 03/03/18 Family Disease History - Family Disease History Family Disease History: Heart Disease: Mother (arthritis, of heart attack), Other: Father (no contact), Mother Admission Physical Exam BHS - Vital Signs Vital Signs: Vital Signs - 24 hr 03/04/18 09:56 Temperature 99.4 F Pulse Rate 79 Respiratory 20 Rate Blood Pressure 146/77 - Physical General Appearance: Yes: Moderate Distress, Tremorous, Irritable, Sweating, Anxious HEENTM: Yes: Normal ENT Inspection, BH[place], Pharynx Normal Respiratory: Yes: Normal Breath Sounds, No Respiratory Distress Neck: Yes: Within Normal Limits, Supple, Trachea in good position Breast: Yes: Within Normal Limits Cardiology: Yes: Within Normal Limits, Regular Rhythm, Regular Rate, S1, S2 Abdominal: Yes: Normal Bowel Sounds, Non Tender, Flat, Soft Genitourinary: Yes: Within Normal Limits Back: Yes: Muscle Spasm Musculoskeletal: Yes: Back pain, Muscle Pain Extremities: Yes: Normal Range of Motion, Tremors 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 NML intact, Alert, Motor Strength 5/5 Integumentary: Yes: Dry Lymphatic: Yes: Within Normal Limits - Diagnostic (1) Alcohol dependence with uncomplicated withdrawal Current Visit: Yes Status: Acute (2) Nicotine dependence Current Visit: Yes Status: Acute Qualifiers: Nicotine product type: cigarettes Substance use status: in withdrawal Qualified Code(s): F17.213 - Nicotine dependence, cigarettes, with withdrawal (3) Opioid dependence on agonist therapy Current Visit: Yes Status: Acute (4) Weight loss Current Visit: No Status: Acute (5) Asthma Current Visit: No Status: Chronic Qualifiers: Asthma severity: mild Asthma persistence: intermittent Asthma complication type: with status asthmaticus Qualified Code(s): J45.22 - Mild intermittent asthma with status asthmaticus (6) Cocaine dependence Current Visit: Yes Status: Acute (7) GERD (gastroesophageal reflux disease) Current Visit: No Status: Chronic Qualifiers: Esophagitis presence: without esophagitis Qualified Code(s): K21.9 - Gastro -esophageal reflux disease without esophagitis Comment: NO CURRENT MED (8) Positive PPD, treated Current Visit: No Status: Resolved (9) Insomnia secondary to depression with anxiety Current Visit: Yes Status: Acute Cleared for Admission BHS - Detox or Rehab S Level of Care: Medically Managed Detox Regimen/Protocol: Librium S Breath Alcohol Content Breath Alcohol Content: 0 Urine Drug Screen - Results Drug Screen Negative: No Urine Drug Screen Results: IVÁN-Cocaine, MTD-Methadone
[2018-03-04] MEDS ORDERED: MAGNESIUM CITRATE 300 ML BOTTLE PO PRN (13:24)
[2018-03-04] MEDS ORDERED: NICOTINE POLACRILEX 2 MG GUM BUC PRN (13:24)
[2018-03-04] MEDS ORDERED: LOPERAMIDE HCL 2 MG CAPSULE PO PRN (13:24)
[2018-03-04] MEDS ORDERED: MAGNESIUM HYDROX 2400MG/30ML ORAL SUSPENSION 30 ML CUP PO PRN (13:24)
[2018-03-04] MEDS ORDERED: MENTHOL/PHENOL 1 EACH UD MM PRN (13:24)
[2018-03-04] MEDS ORDERED: hydrOXYzine PAMOATE 25 MG CAPSULE (FP) PO PRN (13:24)
[2018-03-04] MEDS ORDERED: ACETAMINOPHEN 325 MG TABLET (FP) PO PRN (13:24)
[2018-03-04] MEDS ORDERED: MAG HYDROX/AL HYDROX/SIMETH 30 ML UNIT-DOSE CUP PO PRN (13:24)
[2018-03-04] MEDS ORDERED: guaiFENesin/D-METHORPHAN HB 10 ML UNIT-DOSE CUPS PO PRN (13:24)
[2018-03-04] MEDS ORDERED: chlordiazePOXIDE HCL 25 MG CAPSULE PO PRN (13:24)
[2018-03-04] MEDS ORDERED: IBUPROFEN 400 MG TABLET (FP) PO PRN (13:24)
[2018-03-04] MEDS ORDERED: P-EPHED 60MG/TRIPROLIDI 2.5MG TABLET PO PRN (13:24)
[2018-03-04] MEDS ORDERED: chlordiazePOXIDE HCL 25 MG CAPSULE PO ONE (14:05)
[2018-03-04] MEDS ORDERED: METHADONE HCL 10 MG TABLET PO SCH (14:10)
[2018-03-04] MEDS: METHADONE HCL 40 MG DISPERSABLE TABLET PO SCH (14:46)
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
[2018-03-04] MEDS: chlordiazePOXIDE HCL 25 MG CAPSULE PO SCH ×2 (17:44→22:12)
[2018-03-04 18:03] LABS: URINE APPEARANCE CLEAR; URINE BILIRUBIN NEGATIVE (<2.0 mg/dL); URINE COLOR YELLOW; URINE GLUCOSE (UA) NEGATIVE (NEGATIVE); URINE KETONE NEGATIVE (NEGATIVE); URINE LEUK ESTERASE NEGATIVE (NEGATIVE); URINE NITRITE NEGATIVE (NEGATIVE); URINE PROTEIN NEGATIVE (NEGATIVE)
[2018-03-04] MEDS: THIAMINE HCL 100 MG TABLET (FP) PO SCH (22:12)
[2018-03-04] MEDS: MELATONIN 5 MG TABLETS PO PRN (22:12)
[2018-03-05] MEDS: chlordiazePOXIDE HCL 25 MG CAPSULE PO SCH ×4 (05:25→22:14)
[2018-03-05] MEDS: METHADONE HCL 40 MG DISPERSABLE TABLET PO SCH (05:25)
[2018-03-05 09:59] LABS: HEMATOCRIT 37.2 % (35.4-49); HEMOGLOBIN 12.6 GM/dL (11.7-16.9); MCH 32.3 pg (25.7-33.7); MCHC 33.9 g/dl (32.0-35.9); MEAN CELL VOLUME 95.1 fl (80-96); MEAN PLT VOLUME 8.6 fl (7.5-11.1); PLATELET COUNT 339 K/MM3 (134-434); RBC 3.91 M/mm3 (4.00-5.60); RDW 13.4 % (11.9-15.9); WHITE BLOOD COUNT 3.7 K/mm3 (4.0-10.0)
[2018-03-05] MEDS: PARoxetine HCL 10 MG TABLET (FP) PO SCH (10:17)
[2018-03-05] MEDS: PRENATAL VITAMINS W/ FOLIC ACID TABLET (FP) PO SCH (10:17)
[2018-03-05 10:23] LABS: BLOOD UREA NITROGEN 11 mg/dL (7-18)
[2018-03-05 10:47] LABS: ALBUMIN 3.5 g/dl (3.4-5.0); ALK PHOS 117 U/L (45-117); ANION GAP 4 (8-16); BILIRUBIN,TOTAL 0.2 mg/dL (0.2-1.0); CALCIUM 9.4 mg/dL (8.5-10.1); CHLORIDE 104 mmol/L (98-107); CO2 31 mmol/L (21-32); CREATININE 0.9 mg/dL (0.7-1.3); GLUCOSE,RANDOM 96 mg/dL (74-106); POTASSIUM 4.5 mmol/L (3.5-5.1); SGOT/AST 16 U/L (15-37); SGPT/ALT 19 U/L (12-78); SODIUM 139 mmol/L (136-145)
--- NOTE | 2018-03-05 11:59 | PN ---
[facility] CIWA - CIWA Score Nausea/Vomitin-No Nausea/No Vomiting Muscle Tremors: 4-Moderate,w/Arms Extend Anxiety: 4-Mod. Anxious/Guarded Agitation: 3 Paroxysmal Sweats: No Perspiration Orientation: 0-Oriented Tacttile Disturbances: 2-Mild Itch/Numbness/Burn Auditory Disturbances: 2-Mild Harshness/Frighten Visual Disturbances: 2-Mild Sensitivity Headache: 0-None Present CIWA-Ar Total Score: 17 BHS Progress Note (SOAP) Subjective: Body Aches, Tremors, Anxious. Objective: PATIENT A & O X 3, OBSERVED AMBULATING ON UNIT. NO ACUTE DISTRESS. 03/05/18 11:57 Vital Signs Temperature 98.0 F 03/05/18 09:38 Pulse Rate 66 03/05/18 09:38 Respiratory Rate 18 03/05/18 09:38 Blood Pressure 119/71 03/05/18 09:38 O2 Sat by Pulse Oximetry (%) Laboratory Tests 03/04/18 03/05/18 03/05/18 15:00 05:50 05:50 WBC 3.7 L RBC 3.91 L Hgb 12.6 Hct 37.2 MCV 95.1 MCH 32.3 MCHC 33.9 RDW 13.4 Plt Count 339 D MPV 8.6 Sodium 139 Potassium 4.5 Chloride 104 Carbon Dioxide 31 Anion Gap 4 L BUN 11 D Creatinine 0.9 D Creat Clearance w eGFR > 60 Random Glucose 96 Calcium 9.4 Total Bilirubin 0.2 D AST 16 ALT 19 D Alkaline Phosphatase 117 Total Protein 8.0 D Albumin 3.5 D Urine Color Yellow Urine Appearance Clear Urine pH 5.0 D Ur Specific [place] 1.017 Urine Protein Negative Urine Glucose (UA) Negative Urine Ketones Negative Urine Blood Negative Urine Nitrite Negative Urine Bilirubin Negative Urine Urobilinogen 2.0 Ur Leukocyte Esterase Negative LABS NOTED. RPR RESULT PENDING. 03/05/18 11:59 Assessment: 03/05/18 11:58 WITHDRAWAL SYMPTOMS. Plan: CONTINUE DETOX.
[2018-03-05] MEDS: NICOTINE 14 MG/24 HOURS TOPICAL PATCH TD SCH (12:46)
[2018-03-05] MEDS: METHYL SALICYLATE/MENTHOL OINT 30 GM TUBE TP SCH ×2 (13:26→22:14)
--- NOTE | 2018-03-05 13:35 | EKG ---
Test Reason : Blood Pressure : / mmHG Vent. Rate : 077 BPM Atrial Rate : 077 BPM P-R Int : 178 ms QRS Dur : 094 ms QT Int : 402 ms P-R-T Axes : 066 047 058 degrees QTc Int : 454 ms NORMAL SINUS RHYTHM NORMAL ECG WHEN COMPARED WITH ECG OF 23-OCT-2017 19:18, NO SIGNIFICANT CHANGE WAS FOUND Confirmed by NAE GARCIA MD ([id number]) on 03/05/2018 1:34:54 PM Referred By: Confirmed By:NAE GARCIA MD
[2018-03-05] MEDS: MELATONIN 5 MG TABLETS PO PRN (22:14)
[2018-03-05] MEDS: THIAMINE HCL 100 MG TABLET (FP) PO SCH (22:14)
[2018-03-06] MEDS: METHADONE HCL 40 MG DISPERSABLE TABLET PO SCH (06:06)
[2018-03-06] MEDS: chlordiazePOXIDE HCL 25 MG CAPSULE PO SCH ×2 (06:06→10:10)
[2018-03-06] MEDS: PRENATAL VITAMINS W/ FOLIC ACID TABLET (FP) PO SCH (10:10)
[2018-03-06] MEDS: METHYL SALICYLATE/MENTHOL OINT 30 GM TUBE TP SCH ×2 (10:10→22:07)
[2018-03-06] MEDS: PARoxetine HCL 10 MG TABLET (FP) PO SCH (10:10)
[2018-03-06] MEDS: NICOTINE 14 MG/24 HOURS TOPICAL PATCH TD SCH (10:10)
--- NOTE | 2018-03-06 11:28 | PN ---
[facility] CIWA - CIWA Score Nausea/Vomitin-No Nausea/No Vomiting Muscle Tremors: 4-Moderate,w/Arms Extend Anxiety: 4-Mod. Anxious/Guarded Agitation: 2 Paroxysmal Sweats: No Perspiration Orientation: 0-Oriented Tacttile Disturbances: 2-Mild Itch/Numbness/Burn Auditory Disturbances: 0-None Visual Disturbances: 2-Mild Sensitivity Headache: 0-None Present CIWA-Ar Total Score: 14 BHS Progress Note (SOAP) Subjective: Tremors, Anxious, Interrupted Sleep. Objective: PATIENT A & O X 3, OBSERVED AMBULATING ON UNIT. NO ACUTE DISTRESS. 03/06/18 11:29 Vital Signs Temperature 97.7 F 03/06/18 09:01 Pulse Rate 75 03/06/18 09:01 Respiratory Rate 16 03/06/18 09:01 Blood Pressure 126/71 03/06/18 09:01 O2 Sat by Pulse Oximetry (%) Laboratory Tests 03/04/18 03/05/18 03/05/18 15:00 05:50 05:50 WBC 3.7 L RBC 3.91 L Hgb 12.6 Hct 37.2 MCV 95.1 MCH 32.3 MCHC 33.9 RDW 13.4 Plt Count 339 D MPV 8.6 Sodium 139 Potassium 4.5 Chloride 104 Carbon Dioxide 31 Anion Gap 4 L BUN 11 D Creatinine 0.9 D Creat Clearance w eGFR > 60 Random Glucose 96 Calcium 9.4 Total Bilirubin 0.2 D AST 16 ALT 19 D Alkaline Phosphatase 117 Total Protein 8.0 D Albumin 3.5 D Urine Color Yellow Urine Appearance Clear Urine pH 5.0 D Ur Specific [place] 1.017 Urine Protein Negative Urine Glucose (UA) Negative Urine Ketones Negative Urine Blood Negative Urine Nitrite Negative Urine Bilirubin Negative Urine Urobilinogen 2.0 Ur Leukocyte Esterase Negative LABS NOTED. RPR RESULT PENDING. 03/06/18 11:30 Assessment: 03/06/18 11:29 WITHDRAWAL SYMPTOMS. Plan: CONTINUE DETOX.
[2018-03-06] MEDS: chlordiazePOXIDE 5 MG CAPSULE PO SCH ×2 (17:28→22:06)
[2018-03-06] MEDS: THIAMINE HCL 100 MG TABLET (FP) PO SCH (22:07)
[2018-03-06] MEDS: MELATONIN 5 MG TABLETS PO PRN (22:07)
[2018-03-07] MEDS: METHADONE HCL 40 MG DISPERSABLE TABLET PO SCH (05:09)
[2018-03-07] MEDS: chlordiazePOXIDE 5 MG CAPSULE PO SCH ×2 (05:11→10:20)
[2018-03-07] MEDS: PARoxetine HCL 10 MG TABLET (FP) PO SCH (10:20)
[2018-03-07] MEDS: NICOTINE 14 MG/24 HOURS TOPICAL PATCH TD SCH (10:20)
[2018-03-07] MEDS: PRENATAL VITAMINS W/ FOLIC ACID TABLET (FP) PO SCH (10:20)
[2018-03-07] MEDS: METHYL SALICYLATE/MENTHOL OINT 30 GM TUBE TP SCH ×2 (10:20→22:01)
--- NOTE | 2018-03-07 14:17 | PN ---
BHS Progress Note (SOAP) Subjective: Body Aches. Objective: PATIENT A & O X 3, OBSERVED AMBULATING ON UNIT. NO ACUTE DISTRESS. 03/07/18 14:15 Laboratory Tests 03/04/18 03/05/18 03/05/18 15:00 05:50 05:50 WBC 3.7 L RBC 3.91 L Hgb 12.6 Hct 37.2 MCV 95.1 MCH 32.3 MCHC 33.9 RDW 13.4 Plt Count 339 D MPV 8.6 Sodium 139 Potassium 4.5 Chloride 104 Carbon Dioxide 31 Anion Gap 4 L BUN 11 D Creatinine 0.9 D Creat Clearance w eGFR > 60 Random Glucose 96 Calcium 9.4 Total Bilirubin 0.2 D AST 16 ALT 19 D Alkaline Phosphatase 117 Total Protein 8.0 D Albumin 3.5 D Urine Color Yellow Urine Appearance Clear Urine pH 5.0 D Ur Specific [place] 1.017 Urine Protein Negative Urine Glucose (UA) Negative Urine Ketones Negative Urine Blood Negative Urine Nitrite Negative Urine Bilirubin Negative Urine Urobilinogen 2.0 Ur Leukocyte Esterase Negative RPR Titer 03/05/18 05:50 WBC RBC Hgb Hct MCV MCH MCHC RDW Plt Count MPV Sodium Potassium Chloride Carbon Dioxide Anion Gap BUN Creatinine Creat Clearance w eGFR Random Glucose Calcium Total Bilirubin AST ALT Alkaline Phosphatase Total Protein Albumin Urine Color Urine Appearance Urine pH Ur Specific [place] Urine Protein Urine Glucose (UA) Urine Ketones Urine Blood Urine Nitrite Urine Bilirubin Urine Urobilinogen Ur Leukocyte Esterase RPR Titer Nonreactive LABS NOTED. Assessment: 03/07/18 14:15 WITHDRAWAL SYMPTOMS. Plan: CONTINUE DETOX. PATIENT SCHEDULED FOR D/C TOMORROW.
[2018-03-07] MEDS: chlordiazePOXIDE HCL 10 MG CAPSULE PO SCH ×2 (17:15→22:01)
[2018-03-07 21:56] VITALS: PULSE 77
[2018-03-07] MEDS: THIAMINE HCL 100 MG TABLET (FP) PO SCH (22:01)
[2018-03-07] MEDS: MELATONIN 5 MG TABLETS PO PRN (22:01)
[2018-03-08] MEDS: chlordiazePOXIDE HCL 10 MG CAPSULE PO SCH (05:11)
[2018-03-08] MEDS: METHADONE HCL 40 MG DISPERSABLE TABLET PO SCH (05:11)
[2018-03-08 06:47] VITALS: BP 118/65; TEMP 97.6
[2018-03-08] MEDS: METHYL SALICYLATE/MENTHOL OINT 30 GM TUBE TP SCH (09:09)
[2018-03-08] MEDS: PRENATAL VITAMINS W/ FOLIC ACID TABLET (FP) PO SCH (09:09)
[2018-03-08] MEDS: PARoxetine HCL 10 MG TABLET (FP) PO SCH (09:09)
--- NOTE | 2018-03-08 17:13 | PN ---
BHS Progress Note (SOAP) Subjective: Patient denies current Detox symptoms and reports that he feels well overall. Objective: PATIENT A & O X 3, OBSERVED AMBULATING ON UNIT. NO ACUTE DISTRESS. 03/08/18 17:12 Vital Signs Temperature 97.6 F 03/08/18 06:47 Pulse Rate 77 03/08/18 06:47 Respiratory Rate 18 03/08/18 06:47 Blood Pressure 118/65 03/08/18 06:47 O2 Sat by Pulse Oximetry (%) Laboratory Tests 03/04/18 03/05/18 03/05/18 15:00 05:50 05:50 WBC 3.7 L RBC 3.91 L Hgb 12.6 Hct 37.2 MCV 95.1 MCH 32.3 MCHC 33.9 RDW 13.4 Plt Count 339 D MPV 8.6 Sodium 139 Potassium 4.5 Chloride 104 Carbon Dioxide 31 Anion Gap 4 L BUN 11 D Creatinine 0.9 D Creat Clearance w eGFR > 60 Random Glucose 96 Calcium 9.4 Total Bilirubin 0.2 D AST 16 ALT 19 D Alkaline Phosphatase 117 Total Protein 8.0 D Albumin 3.5 D Urine Color Yellow Urine Appearance Clear Urine pH 5.0 D Ur Specific [place] 1.017 Urine Protein Negative Urine Glucose (UA) Negative Urine Ketones Negative Urine Blood Negative Urine Nitrite Negative Urine Bilirubin Negative Urine Urobilinogen 2.0 Ur Leukocyte Esterase Negative RPR Titer 03/05/18 05:50 WBC RBC Hgb Hct MCV MCH MCHC RDW Plt Count MPV Sodium Potassium Chloride Carbon Dioxide Anion Gap BUN Creatinine Creat Clearance w eGFR Random Glucose Calcium Total Bilirubin AST ALT Alkaline Phosphatase Total Protein Albumin Urine Color Urine Appearance Urine pH Ur Specific [place] Urine Protein Urine Glucose (UA) Urine Ketones Urine Blood Urine Nitrite Urine Bilirubin Urine Urobilinogen Ur Leukocyte Esterase RPR Titer Nonreactive LABS NOTED. Assessment: 03/08/18 17:12 COMPLETION OF DETOX REGIMEN. Plan: PATIENT SCHEDULED FOR DISCHARGE FORM DETOX UNIT TODAY.
--- NOTE | 2018-03-08 17:19 | DS ---
[facility] Detox Discharge Summary Admission Date: 03/04/18 Discharge Date: 03/08/18 - History Present History: Alcohol Dependence, Cocaine Dependence, Opioid Dependence, MMTP Additional Comments: PATIENT GOING TO [facility] ([place] FOR AFTERCARE. PATIENT ALSO RETURNING TO [facility] ([place] FOR AFTERCARE. PATIENT WAS DISCHARGED FROM DETOX UNIT IN STABLE MEDICAL CONDITION. Pertinent Past History: Anxiety, Depression, Insomnia, Nicotine Dependence, Weight Loss, Asthma, History of Positive PPD, GERD. - Physical Exam Results Vital Signs: Vital Signs Temperature 97.6 F 03/08/18 06:47 Pulse Rate 77 03/08/18 06:47 Respiratory Rate 18 03/08/18 06:47 Blood Pressure 118/65 03/08/18 06:47 O2 Sat by Pulse Oximetry (%) Pertinent Admission Physical Exam Findings: WITHDRAWAL SYMPTOMS. Laboratory Tests 03/04/18 03/05/18 03/05/18 15:00 05:50 05:50 WBC 3.7 L RBC 3.91 L Hgb 12.6 Hct 37.2 MCV 95.1 MCH 32.3 MCHC 33.9 RDW 13.4 Plt Count 339 D MPV 8.6 Sodium 139 Potassium 4.5 Chloride 104 Carbon Dioxide 31 Anion Gap 4 L BUN 11 D Creatinine 0.9 D Creat Clearance w eGFR > 60 Random Glucose 96 Calcium 9.4 Total Bilirubin 0.2 D AST 16 ALT 19 D Alkaline Phosphatase 117 Total Protein 8.0 D Albumin 3.5 D Urine Color Yellow Urine Appearance Clear Urine pH 5.0 D Ur Specific [place] 1.017 Urine Protein Negative Urine Glucose (UA) Negative Urine Ketones Negative Urine Blood Negative Urine Nitrite Negative Urine Bilirubin Negative Urine Urobilinogen 2.0 Ur Leukocyte Esterase Negative RPR Titer 03/05/18 05:50 WBC RBC Hgb Hct MCV MCH MCHC RDW Plt Count MPV Sodium Potassium Chloride Carbon Dioxide Anion Gap BUN Creatinine Creat Clearance w eGFR Random Glucose Calcium Total Bilirubin AST ALT Alkaline Phosphatase Total Protein Albumin Urine Color Urine Appearance Urine pH Ur Specific [place] Urine Protein Urine Glucose (UA) Urine Ketones Urine Blood Urine Nitrite Urine Bilirubin Urine Urobilinogen Ur Leukocyte Esterase RPR Titer Nonreactive LABS NOTED. - Treatment Hospital Course: Detox Protocol Followed, Detoxed Safely, Responded well, Discharged Condition Good Patient has Accepted a Rehab Referral to: PT. GOING TO [facility] ([place], [place] FOR AFTERCARE. - Medication Discharge Medications: Ambulatory Orders Albuterol Sulfate Inhaler - [Ventolin HFA Inhaler -] 2 inh IH Q4H PRN #1 inh Paroxetine HCl [Paxil] 10 mg PO DAILY #30 ml 02/03/17 Paroxetine HCl [Paxil -] 10 mg PO DAILY #30 tablet 03/07/18 - Diagnosis (1) Alcohol dependence with uncomplicated withdrawal Status: Acute (2) Insomnia secondary to depression with anxiety Status: Acute (3) Nicotine dependence Status: Acute Qualifiers: Nicotine product type: cigarettes Substance use status: in withdrawal Qualified Code(s): F17.213 - Nicotine dependence, cigarettes, with withdrawal (4) Opioid dependence on agonist therapy Status: Chronic (5) Weight loss Status: Acute (6) Asthma Status: Chronic Qualifiers: Asthma severity: mild Asthma persistence: intermittent Asthma complication type: with status asthmaticus Qualified Code(s): J45.22 - Mild intermittent asthma with status asthmaticus (7) GERD (gastroesophageal reflux disease) Status: Chronic Qualifiers: Esophagitis presence: without esophagitis Qualified Code(s): K21.9 - Gastro -esophageal reflux disease without esophagitis (8) Cocaine dependence Status: Acute Qualifiers: Substance use status: uncomplicated Qualified Code(s): F14.20 - Cocaine dependence, uncomplicated (9) Positive PPD, treated Status: Resolved (10) Substance induced mood disorder Status: Acute (11) MDD (major depressive disorder) Status: Chronic Qualifiers: Major depression recurrence: recurrent Active/Remission status: remission status unspecified Qualified Code(s): F33.9 - Major depressive disorder, recurrent, unspecified - AMA Did Patient Leave Against Medical Advice: No
== END 2018-03-08 09:11 | disposition home or self-care (01) | DRG 773 ==
LOC: YASAS 09:35 → Y3N 13:16
PROVIDERS: ADMIT Internal Medicine; ATTEND Internal Medicine
PROC: HZ2ZZZZ Detoxification Services for Substance Abuse Treatment (ICD-10-PCS; principal; 2018-03-04)
DX: F10.230 Alcohol dependence with withdrawal, uncomplicated (principal); F11.20 Opioid dependence, uncomplicated; F14.20 Cocaine dependence, uncomplicated; F17.213 Nicotine dependence, cigarettes, with withdrawal; F51.05 Insomnia due to other mental disorder; F19.24 Other psychoactive substance dependence with psychoactive substance-induced mood disorder; F33.9 Major depressive disorder, recurrent, unspecified; I25.2 Old myocardial infarction; J45.22 Mild intermittent asthma with status asthmaticus; K21.9 Gastro-esophageal reflux disease without esophagitis; R76.11 Nonspecific reaction to tuberculin skin test without active tuberculosis; M19.90 Unspecified osteoarthritis, unspecified site; D64.9 Anemia, unspecified; Z87.898 Personal history of other specified conditions
CPT/HCPCS: 36415; 80053; 81003; 85027; 86593; 93005; 93010

== ENCOUNTER 2018-07-24 11:39 | Inpatient (IN) | payer OTHER ==
--- NOTE | 2018-07-24 15:02 | HP ---
CIWA Score - CIWA Score Nausea/Vomitin Muscle Tremors: 2 Anxiety: 2 Agitation: 2 Paroxysmal Sweats: 1-Minimal Palms Moist Orientation: 0-Oriented Tacttile Disturbances: 1-Very Mild Itch/Numbness Auditory Disturbances: 1-Very Mild Visual Disturbances: 1-Very Mild Sensitivity Headache: 2-Mild CIWA-Ar Total Score: 14 Admission ROS BHS - HPI Chief Complaint: i need help to stop drinking alcohol and cocaine Allergies/Adverse Reactions: Allergies Allergy/AdvReac Type Severity Reaction Status Date / Time No Known Allergies Allergy Verified 07/24/18 14:52 History of Present Illness: this 52 years old male with alcohol and cocaine dependence,seeking detox, withdrawal symptom,last detox [facility] 05/23 syncope alcohol related weight loss htn,hypercholesterolemia nicotine dependence multiple admissions,keep relapsing longest period of sobriety 8 years mmtp 40 mgs/day,last medicated yesterday - Ebola screening Have you traveled outside of the country in the last 21 days: No Have you had contact with anyone from an Ebola affected area: No Have you been sick,other than usual withdrawal symptoms: No - Review of Systems Constitutional: Loss of Appetite, Malaise, Night Sweats, Changes in sleep, Weakness, Unintentional Wgt. Loss EENT: reports: Nose Congestion Respiratory: reports: No Symptoms reported, Other (history of asthma) Cardiac: reports: No Symptoms Reported GI: reports: Nausea, Vomiting, Abdominal cramping : reports: No Symptoms Reported Musculoskeletal: reports: Back Pain, Muscle Pain Integumentary: reports: Dryness Neuro: reports: Headache, Tremors Endocrine: reports: No Symptoms Reported Hematology: reports: No Symptoms Reported Psychiatric: reports: No Sypmtoms Reported, Judgement Intact, Mood/Affect Appropiate, Orientated x3, Depressed Patient History - Patient Medical History Hx Anemia: Yes (NO MEDS) Hx Asthma: Yes (on albutrol inhaler) Hx Chronic Obstructive Pulmonary Disease (COPD): No Hx Cancer: No Hx Cardiac Disorders: No Hx Congestive Heart Failure: No Hx Hypertension: Yes (no med) Hx Hypercholesterolemia: No (NO MED) Hx Pacemaker: No HX Cerebrovascular Accident: No Hx Seizures: No Hx Dementia: No Hx Diabetes: No Hx Gastrointestinal Disorders: No Hx Liver Disease: No Hx Genitourinary Disorders: No Hx Sexually Transmitted Disorders: No Hx Renal Disease (ESRD): No Hx Thyroid Disease: No Hx Human Immunodeficiency Virus (HIV): No (NEGATIVE HX,last tested 03/03/18) Hx Hepatitis C: No (NEGATIVE) Hx Depression: Yes (on no med) Hx Suicide Attempt: No Hx Bipolar Disorder: No Hx Schizophrenia: No Other Medical History: no suicidal,no homicidal - Patient Surgical History Past Surgical History: Yes Hx Neurologic Surgery: No Hx Cataract Extraction: No Hx Cardiac Surgery: No Hx Lung Surgery: No Hx Breast Surgery: No Hx Breast Biopsy: No Hx Abdominal Surgery: Yes (hernia repair 2004 left inguinal) Hx Appendectomy: No Hx Cholecystectomy: No Hx Genitourinary Surgery: No Hx Section: No Hx Orthopedic Surgery: Yes (LT ARM fx 10 YRS old) Other Surgical History: left inguinal hernia repair in 2004 Anesthesia Reaction: No - PPD History Previous Implant?: Yes Documented Results: Positive w/proof Date: 02/25/16 Results: 0mm PPD to be Administered?: No - Smoking Cessation Smoking history: Current every day smoker Have you smoked in the past 12 months: Yes Aproximately how many cigarettes per day: 10 Cigars Per Day: 0 Hx Chewing Tobacco Use: No Initiated information on smoking cessation: Yes 'Breaking Loose' booklet given: 07/24/18 - Substances Abused Alcohol Route: Oral Frequency: Daily Amount used: 2 6pks beer Age of first use: 22 Date of Last Use: 07/23/18 Cocaine Route: Smoking Frequency: Daily Amount used: $60 Age of first use: 26 Date of Last Use: 07/23/18 Family Disease History - Family Disease History Family Disease History: Heart Disease: Mother (arthritis, of heart attack), Other: Father (no contact), Mother Admission Physical Exam [facility] - Vital Signs Vital Signs: Vital Signs - 24 hr 07/24/18 14:46 Temperature 99.7 F H Pulse Rate 74 Respiratory 20 Rate Blood Pressure 150/72 - Physical General Appearance: Yes: Moderate Distress, Tremorous, Irritable, Sweating, Anxious HEENTM: Yes: Normal ENT Inspection, [place], Pharynx Normal Respiratory: Yes: Lungs Clear, Normal Breath Sounds, No Respiratory Distress Neck: Yes: Within Normal Limits, Supple, Trachea in good position Breast: Yes: Within Normal Limits Cardiology: Yes: Within Normal Limits, Regular Rhythm, Regular Rate, S1, S2 Abdominal: Yes: Within Normal Limits, Normal Bowel Sounds, Non Tender, Flat, Soft Genitourinary: Yes: Within Normal Limits Back: Yes: Muscle Spasm Musculoskeletal: Yes: full range of Motion, Back pain, Muscle Pain Extremities: Yes: Normal Range of Motion (deformity of left ring finger), Tremors, Calf Tenderness 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 intact, Alert, Motor Strength 5/5 Integumentary: Yes: Dry Lymphatic: Yes: Within Normal Limits - Diagnostic (1) Alcohol dependence with uncomplicated withdrawal Current Visit: Yes Status: Acute (2) Cocaine dependence Current Visit: Yes Status: Acute Qualifiers: Substance use status: uncomplicated Qualified Code(s): F14.20 - Cocaine dependence, uncomplicated (3) Nicotine dependence Current Visit: Yes Status: Acute Qualifiers: Nicotine product type: cigarettes Substance use status: in withdrawal Qualified Code(s): F17.213 - Nicotine dependence, cigarettes, with withdrawal (4) Weight loss Current Visit: No Status: Acute (5) Asthma Current Visit: No Status: Chronic Qualifiers: Asthma severity: mild Asthma persistence: intermittent Asthma complication type: with status asthmaticus Qualified Code(s): J45.22 - Mild intermittent asthma with status asthmaticus (6) GERD (gastroesophageal reflux disease) Current Visit: No Status: Chronic Qualifiers: Esophagitis presence: without esophagitis Qualified Code(s): K21.9 - Gastro -esophageal reflux disease without esophagitis Comment: NO CURRENT MED (7) Methadone maintenance therapy patient Current Visit: No Status: Chronic Comment: 40 mg po daily verification pending (8) History of anemia Current Visit: No Status: Suspected (9) History of hypercholesterolemia Current Visit: No Status: Suspected Comment: NO MEDS (10) Positive PPD, treated Current Visit: No Status: Resolved Cleared for Admission S - Detox or Rehab [facility] Level of Care: Medically Managed Detox Regimen/Protocol: Librium [facility] Breath Alcohol Content Breath Alcohol Content: 0 Urine Drug Screen - Results Drug Screen Negative: No Urine Drug Screen Results: IVÁN-Cocaine, MTD-Methadone
[2018-07-24] MEDS ORDERED: ACETAMINOPHEN 325 MG TABLET (FP) PO PRN (15:12)
[2018-07-24] MEDS ORDERED: guaiFENesin/D-METHORPHAN HB 10 ML UNIT-DOSE CUPS PO PRN (15:12)
[2018-07-24] MEDS ORDERED: MAG HYDROX/AL HYDROX/SIMETH 30 ML UNIT-DOSE CUP PO PRN (15:12)
[2018-07-24] MEDS ORDERED: LOPERAMIDE HCL 2 MG CAPSULE PO PRN (15:12)
[2018-07-24] MEDS ORDERED: chlordiazePOXIDE HCL 25 MG CAPSULE PO PRN (15:12)
[2018-07-24] MEDS ORDERED: MAGNESIUM HYDROX 2400MG/30ML ORAL SUSPENSION 30 ML CUP PO PRN (15:12)
[2018-07-24] MEDS ORDERED: IBUPROFEN 400 MG TABLET (FP) PO PRN (15:12)
[2018-07-24] MEDS ORDERED: MENTHOL/PHENOL 1 EACH UD MM PRN (15:12)
[2018-07-24] MEDS ORDERED: hydrOXYzine PAMOATE 25 MG CAPSULE (FP) PO PRN (15:12)
[2018-07-24] MEDS ORDERED: P-EPHED 60MG/TRIPROLIDI 2.5MG TABLET PO PRN (15:12)
[2018-07-24] MEDS ORDERED: MAGNESIUM CITRATE 300 ML BOTTLE PO PRN (15:12)
[2018-07-24] MEDS ORDERED: ALBUTEROL SO4 8 GM HFA INHALER IH PRN (15:17)
[2018-07-24] MEDS: NICOTINE 21 MG/24 HOURS TOPICAL PATCH TD SCH (16:24)
[2018-07-24] MEDS: METHADONE HCL 40 MG DISPERSABLE TABLET PO SCH (16:24)
[2018-07-24] MEDS: chlordiazePOXIDE HCL 25 MG CAPSULE PO SCH ×2 (16:24→22:19)
[2018-07-24 18:21] LABS: URINE APPEARANCE CLEAR; URINE BILIRUBIN NEGATIVE (<2.0 mg/dL); URINE COLOR YELLOW; URINE GLUCOSE (UA) NEGATIVE (NEGATIVE); URINE KETONE 1+ (NEGATIVE); URINE LEUK ESTERASE NEGATIVE (NEGATIVE); URINE NITRITE NEGATIVE (NEGATIVE); URINE PROTEIN NEGATIVE (NEGATIVE); URINE UROBILINOGEN 4.0 E.U/dl mg/dL (0.2-1.0)
[2018-07-24] MEDS ORDERED: MELATONIN 5 MG TABLETS PO PRN (22:00)
[2018-07-24] MEDS: THIAMINE HCL 100 MG TABLET (FP) PO SCH (22:20)
[2018-07-25] MEDS: METHADONE HCL 40 MG DISPERSABLE TABLET PO SCH (05:16)
[2018-07-25] MEDS: chlordiazePOXIDE HCL 25 MG CAPSULE PO SCH ×4 (05:16→22:21)
[2018-07-25] MEDS: PRENATAL VITAMINS W/ FOLIC ACID TABLET (FP) PO SCH (10:08)
[2018-07-25] MEDS: NICOTINE 21 MG/24 HOURS TOPICAL PATCH TD SCH (10:09)
[2018-07-25 10:46] LABS: ALK PHOS 137 U/L (45-117); ANION GAP 7 MMOL/L (8-16); BILIRUBIN,TOTAL 0.6 mg/dL (0.2-1); BLOOD UREA NITROGEN 14 mg/dL (7-18); CALCIUM 9.1 mg/dL (8.5-10.1); CHLORIDE 104 mmol/L (98-107); CO2 28 mmol/L (21-32); CREATININE 0.8 mg/dL (0.55-1.3); GLUCOSE,RANDOM 63 mg/dL (74-106); POTASSIUM 4.6 mmol/L (3.5-5.1); SGOT/AST 26 U/L (15-37); SGPT/ALT 28 U/L (13-61); SODIUM 139 mmol/L (136-145); TOT PROT 8.2 g/dl (6.4-8.2)
[2018-07-25 11:01] LABS: HEMATOCRIT 40.5 % (35.4-49); HEMOGLOBIN 13.4 GM/dL (11.7-16.9); MCHC 33.1 g/dl (32.0-35.9); MEAN CELL VOLUME 93.7 fl (80-96); MEAN PLT VOLUME 8.6 fl (7.5-11.1); PLATELET COUNT 360 K/MM3 (134-434); RBC 4.33 M/mm3 (4.00-5.60); RDW 14.7 % (11.9-15.9); WHITE BLOOD COUNT 3.5 K/mm3 (4.0-10.0)
--- NOTE | 2018-07-25 12:59 | PN ---
S CIWA - CIWA Score Nausea/Vomitin-Mild Nausea/No Vomiting Muscle Tremors: None Anxiety: 2 Agitation: 2 Paroxysmal Sweats: 2 Orientation: 0-Oriented Tacttile Disturbances: 0-None Auditory Disturbances: 0-None Visual Disturbances: 0-None Headache: 1-Very Mild CIWA-Ar Total Score: 8 BHS Progress Note (SOAP) Subjective: PATIENT C/O SWEATING, MILD HEADACHE AND ANXIETY. Objective: 07/25/18 12:58 Vital Signs Temperature 98.7 F 07/25/18 10:28 Pulse Rate 68 07/25/18 10:28 Respiratory Rate 18 07/25/18 10:28 Blood Pressure 114/61 07/25/18 10:28 O2 Sat by Pulse Oximetry (%) Laboratory Tests 07/24/18 07/25/18 07/25/18 17:55 05:40 05:40 WBC 3.5 L RBC 4.33 Hgb 13.4 Hct 40.5 MCV 93.7 MCH 31.0 MCHC 33.1 RDW 14.7 Plt Count 360 MPV 8.6 Sodium 139 Potassium 4.6 Chloride 104 Carbon Dioxide 28 Anion Gap 7 L BUN 14 Creatinine 0.8 Creat Clearance w eGFR > 60 Random Glucose 63 L Calcium 9.1 Total Bilirubin 0.6 AST 26 ALT 28 Alkaline Phosphatase 137 H Total Protein 8.2 Albumin 4.0 Urine Color Yellow Urine Appearance Clear Urine pH 5.0 Ur Specific [place] 1.020 Urine Protein Negative Urine Glucose (UA) Negative Urine Ketones 1+ H Urine Blood Negative Urine Nitrite Negative Urine Bilirubin Negative Urine Urobilinogen 4.0 e.u/dl Ur Leukocyte Esterase Negative RPR Titer 07/25/18 05:40 WBC RBC Hgb Hct MCV MCH MCHC RDW Plt Count MPV Sodium Potassium Chloride Carbon Dioxide Anion Gap BUN Creatinine Creat Clearance w eGFR Random Glucose Calcium Total Bilirubin AST ALT Alkaline Phosphatase Total Protein Albumin Urine Color Urine Appearance Urine pH Ur Specific [place] Urine Protein Urine Glucose (UA) Urine Ketones Urine Blood Urine Nitrite Urine Bilirubin Urine Urobilinogen Ur Leukocyte Esterase RPR Titer Nonreactive SKIN WARM AND MOIST CAR S1S2 RESP CTA BL ALERT AND ORIENTED X 3 AMB AD GIFTY +PERRLA, EOMS INTACT BL Assessment: 07/25/18 12:59 WITHDRAWAL SX Plan: CONTINUE DETOX ENCOURAGE ORAL FLUIDS CONTINUE TO MONITOR CLINICALLY
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
--- NOTE | 2018-07-25 18:09 | EKG ---
Test Reason : Blood Pressure : / mmHG Vent. Rate : 077 BPM Atrial Rate : 077 BPM P-R Int : 172 ms QRS Dur : 092 ms QT Int : 402 ms P-R-T Axes : 060 032 049 degrees QTc Int : 454 ms NORMAL SINUS RHYTHM POSSIBLE LEFT ATRIAL ENLARGEMENT BORDERLINE ECG WHEN COMPARED WITH ECG OF 04-MAR-2018 14:10, NO SIGNIFICANT CHANGE WAS FOUND Confirmed by NAE GARCIA MD ([id number]) on 07/25/2018 6:09:50 PM Referred By: Confirmed By:NAE GARCIA MD
[2018-07-25] MEDS: THIAMINE HCL 100 MG TABLET (FP) PO SCH (22:21)
[2018-07-25] MEDS: traZODone HCL 50 MG TABLET (FP) PO SCH (22:21)
[2018-07-26] MEDS: METHADONE HCL 40 MG DISPERSABLE TABLET PO SCH (05:19)
[2018-07-26] MEDS: chlordiazePOXIDE HCL 25 MG CAPSULE PO SCH ×2 (05:19→10:03)
[2018-07-26] MEDS: FLUoxetine HCL 20 MG CAPSULE (FP) PO SCH (10:03)
[2018-07-26] MEDS: NICOTINE 21 MG/24 HOURS TOPICAL PATCH TD SCH (10:03)
[2018-07-26] MEDS: PRENATAL VITAMINS W/ FOLIC ACID TABLET (FP) PO SCH (10:03)
--- NOTE | 2018-07-26 16:23 | PN ---
S CIWA - CIWA Score Nausea/Vomitin Muscle Tremors: 2 Anxiety: 2 Agitation: 2 Paroxysmal Sweats: 2 Orientation: 0-Oriented Tacttile Disturbances: 0-None Auditory Disturbances: 0-None Visual Disturbances: 0-None Headache: 0-None Present CIWA-Ar Total Score: 10 BHS Progress Note (SOAP) Subjective: Interrupted sleep, sweating Objective: 07/26/18 16:22 Last Vital Signs Temp Pulse Resp BP Pulse Ox 97.9 F 80 18 117/74 07/26/18 13:01 07/26/18 13:01 07/26/18 13:01 07/26/18 13:01 Laboratory Tests 07/24/18 07/25/18 07/25/18 17:55 05:40 05:40 WBC 3.5 L RBC 4.33 Hgb 13.4 Hct 40.5 MCV 93.7 MCH 31.0 MCHC 33.1 RDW 14.7 Plt Count 360 MPV 8.6 Sodium 139 Potassium 4.6 Chloride 104 Carbon Dioxide 28 Anion Gap 7 L BUN 14 Creatinine 0.8 Creat Clearance w eGFR > 60 Random Glucose 63 L Calcium 9.1 Total Bilirubin 0.6 AST 26 ALT 28 Alkaline Phosphatase 137 H Total Protein 8.2 Albumin 4.0 Urine Color Yellow Urine Appearance Clear Urine pH 5.0 Ur Specific [place] 1.020 Urine Protein Negative Urine Glucose (UA) Negative Urine Ketones 1+ H Urine Blood Negative Urine Nitrite Negative Urine Bilirubin Negative Urine Urobilinogen 4.0 e.u/dl Ur Leukocyte Esterase Negative RPR Titer 07/25/18 05:40 WBC RBC Hgb Hct MCV MCH MCHC RDW Plt Count MPV Sodium Potassium Chloride Carbon Dioxide Anion Gap BUN Creatinine Creat Clearance w eGFR Random Glucose Calcium Total Bilirubin AST ALT Alkaline Phosphatase Total Protein Albumin Urine Color Urine Appearance Urine pH Ur Specific [place] Urine Protein Urine Glucose (UA) Urine Ketones Urine Blood Urine Nitrite Urine Bilirubin Urine Urobilinogen Ur Leukocyte Esterase RPR Titer Nonreactive Labs reviewed Assessment: 07/26/18 16:22 Withdrawal symptoms Plan: Continue detox Encouraged PO water intake
[2018-07-26] MEDS: chlordiazePOXIDE 5 MG CAPSULE PO SCH ×2 (17:38→22:26)
[2018-07-26] MEDS: traZODone HCL 50 MG TABLET (FP) PO SCH (22:26)
[2018-07-26] MEDS: THIAMINE HCL 100 MG TABLET (FP) PO SCH (22:26)
[2018-07-27] MEDS: chlordiazePOXIDE 5 MG CAPSULE PO SCH ×2 (05:09→10:05)
[2018-07-27] MEDS: METHADONE HCL 40 MG DISPERSABLE TABLET PO SCH (05:09)
[2018-07-27] MEDS: FLUoxetine HCL 20 MG CAPSULE (FP) PO SCH (10:05)
[2018-07-27] MEDS: PRENATAL VITAMINS W/ FOLIC ACID TABLET (FP) PO SCH (10:05)
[2018-07-27] MEDS: NICOTINE 21 MG/24 HOURS TOPICAL PATCH TD SCH (10:06)
--- NOTE | 2018-07-27 11:05 | PN ---
BHS Progress Note (SOAP) Subjective: Denies any symptoms; appears anxious Objective: 07/27/18 11:03 Last Vital Signs Temp Pulse Resp BP Pulse Ox 97.2 F L 73 18 104/66 07/27/18 09:04 07/27/18 09:04 07/27/18 09:04 07/27/18 09:04 Laboratory Tests 07/24/18 07/25/18 07/25/18 17:55 05:40 05:40 WBC 3.5 L RBC 4.33 Hgb 13.4 Hct 40.5 MCV 93.7 MCH 31.0 MCHC 33.1 RDW 14.7 Plt Count 360 MPV 8.6 Sodium 139 Potassium 4.6 Chloride 104 Carbon Dioxide 28 Anion Gap 7 L BUN 14 Creatinine 0.8 Creat Clearance w eGFR > 60 Random Glucose 63 L Calcium 9.1 Total Bilirubin 0.6 AST 26 ALT 28 Alkaline Phosphatase 137 H Total Protein 8.2 Albumin 4.0 Urine Color Yellow Urine Appearance Clear Urine pH 5.0 Ur Specific [place] 1.020 Urine Protein Negative Urine Glucose (UA) Negative Urine Ketones 1+ H Urine Blood Negative Urine Nitrite Negative Urine Bilirubin Negative Urine Urobilinogen 4.0 e.u/dl Ur Leukocyte Esterase Negative RPR Titer 07/25/18 05:40 WBC RBC Hgb Hct MCV MCH MCHC RDW Plt Count MPV Sodium Potassium Chloride Carbon Dioxide Anion Gap BUN Creatinine Creat Clearance w eGFR Random Glucose Calcium Total Bilirubin AST ALT Alkaline Phosphatase Total Protein Albumin Urine Color Urine Appearance Urine pH Ur Specific [place] Urine Protein Urine Glucose (UA) Urine Ketones Urine Blood Urine Nitrite Urine Bilirubin Urine Urobilinogen Ur Leukocyte Esterase RPR Titer Nonreactive Labs reviewed Assessment: 07/27/18 11:04 Withdrawal symptoms Plan: Continue detox Encouraged PO water intake
[2018-07-27] MEDS: chlordiazePOXIDE HCL 10 MG CAPSULE PO SCH ×2 (17:16→22:01)
[2018-07-27] MEDS: traZODone HCL 50 MG TABLET (FP) PO SCH (22:01)
[2018-07-27] MEDS: THIAMINE HCL 100 MG TABLET (FP) PO SCH (22:01)
[2018-07-28] MEDS: METHADONE HCL 40 MG DISPERSABLE TABLET PO SCH (05:36)
[2018-07-28] MEDS: chlordiazePOXIDE HCL 10 MG CAPSULE PO SCH ×2 (05:36→10:06)
[2018-07-28 09:21] VITALS: BP 106/63; PULSE 85; TEMP 98.8
[2018-07-28] MEDS: PRENATAL VITAMINS W/ FOLIC ACID TABLET (FP) PO SCH (10:06)
[2018-07-28] MEDS: FLUoxetine HCL 20 MG CAPSULE (FP) PO SCH (10:06)
[2018-07-28] MEDS: NICOTINE 21 MG/24 HOURS TOPICAL PATCH TD SCH (10:06)
--- NOTE | 2018-07-28 11:38 | DS ---
[facility] Detox Discharge Summary Admission Date: 07/24/18 Discharge Date: 07/28/18 - History Present History: Alcohol Dependence, Cocaine Dependence, MMTP Pertinent Past History: Alcohol dependence Cocaine dependence Nicotine dependence Opioid dependence on agonist Asthma - Physical Exam Results Vital Signs: Vital Signs Temperature 98.8 F 07/28/18 09:21 Pulse Rate 85 07/28/18 09:21 Respiratory Rate 18 07/28/18 09:21 Blood Pressure 106/63 07/28/18 09:21 O2 Sat by Pulse Oximetry (%) Pertinent Admission Physical Exam Findings: Withdrawal symptoms Laboratory Tests 07/24/18 07/25/18 07/25/18 17:55 05:40 05:40 WBC 3.5 L RBC 4.33 Hgb 13.4 Hct 40.5 MCV 93.7 MCH 31.0 MCHC 33.1 RDW 14.7 Plt Count 360 MPV 8.6 Sodium 139 Potassium 4.6 Chloride 104 Carbon Dioxide 28 Anion Gap 7 L BUN 14 Creatinine 0.8 Creat Clearance w eGFR > 60 Random Glucose 63 L Calcium 9.1 Total Bilirubin 0.6 AST 26 ALT 28 Alkaline Phosphatase 137 H Total Protein 8.2 Albumin 4.0 Urine Color Yellow Urine Appearance Clear Urine pH 5.0 Ur Specific [place] 1.020 Urine Protein Negative Urine Glucose (UA) Negative Urine Ketones 1+ H Urine Blood Negative Urine Nitrite Negative Urine Bilirubin Negative Urine Urobilinogen 4.0 e.u/dl Ur Leukocyte Esterase Negative RPR Titer 07/25/18 05:40 WBC RBC Hgb Hct MCV MCH MCHC RDW Plt Count MPV Sodium Potassium Chloride Carbon Dioxide Anion Gap BUN Creatinine Creat Clearance w eGFR Random Glucose Calcium Total Bilirubin AST ALT Alkaline Phosphatase Total Protein Albumin Urine Color Urine Appearance Urine pH Ur Specific [place] Urine Protein Urine Glucose (UA) Urine Ketones Urine Blood Urine Nitrite Urine Bilirubin Urine Urobilinogen Ur Leukocyte Esterase RPR Titer Nonreactive Labs reviewed - Treatment Hospital Course: Detox Protocol Followed, Detoxed Safely, Responded well, Discharged Condition Good, Rehab Referral Accepted - Medication Discharge Medications: Ambulatory Orders Albuterol Sulfate Inhaler - [Ventolin HFA Inhaler -] 2 inh IH Q4H PRN #1 inh - Diagnosis (1) Alcohol dependence with uncomplicated withdrawal Status: Acute (2) Cocaine dependence Status: Chronic Qualifiers: Substance use status: uncomplicated Qualified Code(s): F14.20 - Cocaine dependence, uncomplicated (3) Nicotine dependence Status: Chronic Qualifiers: Nicotine product type: cigarettes Substance use status: in withdrawal Qualified Code(s): F17.213 - Nicotine dependence, cigarettes, with withdrawal (4) Asthma Status: Chronic Qualifiers: Asthma severity: mild Asthma persistence: intermittent Asthma complication type: with status asthmaticus Qualified Code(s): J45.22 - Mild intermittent asthma with status asthmaticus (5) GERD (gastroesophageal reflux disease) Status: Chronic Qualifiers: Esophagitis presence: without esophagitis Qualified Code(s): K21.9 - Gastro -esophageal reflux disease without esophagitis (6) Methadone maintenance therapy patient Status: Chronic - AMA Did Patient Leave Against Medical Advice: No (Patient admitted to [facility])
== END 2018-07-28 11:20 | disposition other institution (70) | DRG 773 ==
LOC: YASAS 11:39 → Y3N 15:14
PROC: HZ2ZZZZ Detoxification Services for Substance Abuse Treatment (ICD-10-PCS; principal; 2018-07-24)
DX: F10.230 Alcohol dependence with withdrawal, uncomplicated (principal); F11.20 Opioid dependence, uncomplicated; F14.20 Cocaine dependence, uncomplicated; F17.213 Nicotine dependence, cigarettes, with withdrawal; F19.24 Other psychoactive substance dependence with psychoactive substance-induced mood disorder; F33.9 Major depressive disorder, recurrent, unspecified; J45.22 Mild intermittent asthma with status asthmaticus; K21.9 Gastro-esophageal reflux disease without esophagitis; G47.00 Insomnia, unspecified; Z87.898 Personal history of other specified conditions
CPT/HCPCS: 36415; 80053; 81003; 85027; 86593; 93005; 93010

== ENCOUNTER 2018-07-28 11:21 | Inpatient (IN) | payer OTHER ==
[2018-07-28 12:28] VITALS: BMI 21.6
[2018-07-28] MEDS ORDERED: MAG HYDROX/AL HYDROX/SIMETH 30 ML UNIT-DOSE CUP PO PRN (15:34)
[2018-07-28] MEDS ORDERED: ACETAMINOPHEN 325 MG TABLET (FP) PO PRN (15:34)
[2018-07-28] MEDS ORDERED: P-EPHED 60MG/TRIPROLIDI 2.5MG TABLET PO PRN (15:34)
[2018-07-28] MEDS ORDERED: guaiFENesin/D-METHORPHAN HB 10 ML UNIT-DOSE CUPS PO PRN (15:34)
[2018-07-28] MEDS ORDERED: hydrOXYzine PAMOATE 50 MG CAPSULE (FP) PO PRN (15:34)
[2018-07-28] MEDS ORDERED: MAGNESIUM HYDROX 2400MG/30ML ORAL SUSPENSION 30 ML CUP PO PRN (15:34)
[2018-07-28] MEDS ORDERED: MENTHOL/PHENOL 1 EACH UD MM PRN (15:34)
[2018-07-28] MEDS ORDERED: MAGNESIUM CITRATE 300 ML BOTTLE PO PRN (15:34)
[2018-07-28] MEDS ORDERED: LOPERAMIDE HCL 2 MG CAPSULE PO PRN (15:34)
[2018-07-28] MEDS ORDERED: NICOTINE POLACRILEX 2 MG GUM BUC PRN (15:34)
--- NOTE | 2018-07-28 15:34 | HP ---
[facility] Rehab Assess/Revision - Admission History Admitted to Rehab from: [facility] Date of Admission to Rehab: 07/28/18 - Vital signs Vital Signs: Vital Signs Period Temp Pulse Resp BP Sys/Ramirez Pulse Ox Last 24 Hr 98.1 F 82 18 95/61 - Findings Detox History & Physical reviewed: Yes Concur with findings: Yes Inpatient Rehab Admission - Initial Determination Are CD services needed?: Yes Free of communicable disease: Yes Not in need of hospitalization: Yes - Rehab Admission Criteria Patient is meeting Inpatient Rehab admission criteria:: Yes
[2018-07-28] MEDS ORDERED: ALBUTEROL SO4 8 GM HFA INHALER IH PRN (15:35)
[2018-07-28] MEDS: NICOTINE 14 MG/24 HOURS TOPICAL PATCH TD SCH (19:36)
--- NOTE | 2018-07-28 20:51 | PN ---
[facility] Progress Note Note: Psychiatric nurse practitioner note: Call received by RN requesting patient's evening medications of trazodone 50mg. Chart reviewed. Dr. Waggoner note read and appreciated. Will order trazodone 50mg qhs.
[2018-07-28] MEDS: traZODone HCL 50 MG TABLET (FP) PO SCH (21:23)
[2018-07-28] MEDS: THIAMINE HCL 100 MG TABLET (FP) PO SCH (21:23)
[2018-07-29] MEDS: METHADONE HCL 40 MG DISPERSABLE TABLET PO SCH (06:16)
--- NOTE | 2018-07-29 06:41 | HP ---
Psychiatrist Admission - Data Date of interview: 07/29/18 Admission source: 3N Identifying data: This is the third [facility] sdmission for this 52 years old Black male, unemployed on SSI, domiciled Medical History: Significant for anemia, bronchial asthma, hypertension, dyslipidemia, GERD, osteoarthritis, history of myocardial infarction in 2013, treatment for positive PPD and surgeries(fracture of left arm at age 11, left inguinal hernia repair in 2004). Patient is on methadone 40 mg/day. Smokes 10 cigarettes daily Psychiatric History: Reports that his first psychiatric contact was in 2002 when he was diagnosed with MDD/Anxiety Disorder. Reports 2 previous psychiatric hospitalizations at [facility] and most recently in 2018 at [facility]. Reports getting psychiatric OPD care services at one of the [facility] in the [place] located at[address] [place] [address]. He is currently prescribed Fluoxetine 20 mg/day and Trazadone 50 mg/hs(confirmed by survey of pharmacy claims on 07/03/18 & 07/21/18 at [facility] # [id number]). He was seen by Dr Waggoner on07/25/18 while in detox and he was continued on his medications. Denies history of suicide attempts. At present, reports feeling well but sleeping poorly Physical/Sexual Abuse/Trauma History: Denies history of emotional, physical or sexual abuse as well as DV relationship. No service Additional Comment: Reports history of 2 previous misdemeanor arrests on charges of posession of stolen property and violation. Denies being on probation at present Vital Signs: Vital Signs - 24 hr 07/28/18 07/29/18 07/29/18 12:12 00:30 03:30 Temperature 98.1 F Pulse Rate 82 Respiratory 18 20 20 Rate Blood Pressure 95/61 Allergies/Adverse Reactions: Allergies Allergy/AdvReac Type Severity Reaction Status Date / Time No Known Allergies Allergy Verified 07/24/18 14:52 Date of last physical exam: 07/24/18 Concur with the findings of this exam: Yes - Substance Abuse/Tx History Hx Alcohol Use: Yes Hx Substance Use: Yes ([facility]) Substance Use Type: Alcohol (Started drinking alcohol at age 22, consumes 2x 6pk daily. Last drank on 07/23/18), Cocaine (Started smoking crack cocaine at ag 26, consumes $60 worth daily.Last smokedon 07/23/18) Hx Substance Use Treatment: Yes (8 previous inpt detox & 2 inpt rehab admissions @ [facility]) Mental Status Exam - Mental Status Exam Alert and Oriented to: Time, Place, Person Cognitive Function: Fair Patient Appearance: Well Groomed Mood: Hopeful, Euthymic Affect: Appropriate Patient Behavior: Cooperative Speech Pattern: Clear Voice Loudness: Normal Thought Process: Intact, Goal Oriented Hallucinations: Denies Suicidal Ideation: Denies Homicidal Ideation: Denies Insight/Judgement: Fair Sleep: Poorly Appetite: Good Muscle strength/Tone: Normal Gait/Station: Normal Psychiatric Findings - Problem List ([place] 1, 2,3) (1) Alcohol dependence Current Visit: Yes Status: Acute (2) Cocaine dependence Current Visit: Yes Status: Acute (3) Opioid dependence on agonist therapy Current Visit: No Status: Chronic (4) Nicotine dependence Current Visit: No Status: Chronic Qualifiers: Nicotine product type: cigarettes Substance use status: in withdrawal Qualified Code(s): F17.213 - Nicotine dependence, cigarettes, with withdrawal (5) MDD (major depressive disorder), recurrent episode, severe Current Visit: Yes Status: Chronic (6) Asthma Current Visit: No Status: Chronic Qualifiers: Asthma severity: mild Asthma persistence: intermittent Asthma complication type: with status asthmaticus Qualified Code(s): J45.22 - Mild intermittent asthma with status asthmaticus (7) History of anemia Current Visit: No Status: Suspected (8) History of hypercholesterolemia Current Visit: No Status: Chronic Comment: NO MEDS (9) Positive PPD, treated Current Visit: No Status: Resolved (10) HTN (hypertension) Current Visit: Yes Status: Chronic - Initial Treatment Plan Initial Treatment Plan: 1) Continue Fluoxetine 20 mg po daily and Trazadone 50 mg po HS. 2) Monitor progress
[2018-07-29] MEDS: amLODIPine BESYLATE 5 MG TABLET (FP) PO SCH (09:54)
[2018-07-29] MEDS: PRENATAL VITAMINS W/ FOLIC ACID TABLET (FP) PO SCH (09:54)
[2018-07-29] MEDS: NICOTINE 14 MG/24 HOURS TOPICAL PATCH TD SCH (09:54)
[2018-07-29] MEDS ORDERED: PNEUMOCOCCAL 23 VACCINE 0.5 ML VIAL IM ONE (12:00)
[2018-07-29] MEDS ORDERED: FLU VACCINE QUAD 60 MCG/0.5 ML (MDV 18-19) IM ONE (12:28)
[2018-07-29] MEDS ORDERED: PNEUMOC 13-VAL CONJ-DIP CRM/PF 0.5 ML DISP.SYRIN IM ONE (12:28)
[2018-07-29] MEDS: THIAMINE HCL 100 MG TABLET (FP) PO SCH (21:05)
[2018-07-29] MEDS: traZODone HCL 50 MG TABLET (FP) PO SCH (21:05)
[2018-07-29] MEDS: MELATONIN 5 MG TABLETS PO PRN (21:05)
[2018-07-30] MEDS: METHADONE HCL 40 MG DISPERSABLE TABLET PO SCH (06:13)
[2018-07-30] MEDS: NICOTINE 14 MG/24 HOURS TOPICAL PATCH TD SCH (09:57)
[2018-07-30] MEDS: IBUPROFEN 400 MG TABLET (FP) PO PRN ×2 (09:58→17:08)
[2018-07-30] MEDS: PRENATAL VITAMINS W/ FOLIC ACID TABLET (FP) PO SCH (09:59)
[2018-07-30] MEDS: amLODIPine BESYLATE 5 MG TABLET (FP) PO SCH (09:59)
[2018-07-30] MEDS: THIAMINE HCL 100 MG TABLET (FP) PO SCH (21:10)
[2018-07-30] MEDS: MELATONIN 5 MG TABLETS PO PRN (21:10)
[2018-07-30] MEDS: traZODone HCL 50 MG TABLET (FP) PO SCH (21:10)
[2018-07-31] MEDS: METHADONE HCL 40 MG DISPERSABLE TABLET PO SCH (05:59)
[2018-07-31] MEDS: amLODIPine BESYLATE 5 MG TABLET (FP) PO SCH (10:21)
[2018-07-31] MEDS: PRENATAL VITAMINS W/ FOLIC ACID TABLET (FP) PO SCH (10:21)
[2018-07-31] MEDS: NICOTINE 14 MG/24 HOURS TOPICAL PATCH TD SCH (10:21)
[2018-07-31] MEDS: THIAMINE HCL 100 MG TABLET (FP) PO SCH (21:09)
[2018-07-31] MEDS: traZODone HCL 50 MG TABLET (FP) PO SCH (21:09)
[2018-07-31] MEDS: MELATONIN 5 MG TABLETS PO PRN (21:09)
[2018-08-01] MEDS: METHADONE HCL 40 MG DISPERSABLE TABLET PO SCH (06:13)
[2018-08-01] MEDS: PRENATAL VITAMINS W/ FOLIC ACID TABLET (FP) PO SCH (10:34)
[2018-08-01] MEDS: amLODIPine BESYLATE 5 MG TABLET (FP) PO SCH (10:34)
[2018-08-01] MEDS: NICOTINE 14 MG/24 HOURS TOPICAL PATCH TD SCH (10:34)
[2018-08-01] MEDS: IBUPROFEN 400 MG TABLET (FP) PO PRN ×2 (10:35→16:41)
[2018-08-01] MEDS: MELATONIN 5 MG TABLETS PO PRN (21:20)
[2018-08-01] MEDS: THIAMINE HCL 100 MG TABLET (FP) PO SCH (21:20)
[2018-08-01] MEDS: traZODone HCL 50 MG TABLET (FP) PO SCH (21:20)
[2018-08-02] MEDS: METHADONE HCL 40 MG DISPERSABLE TABLET PO SCH (05:55)
[2018-08-02] MEDS: amLODIPine BESYLATE 5 MG TABLET (FP) PO SCH (10:06)
[2018-08-02] MEDS: NICOTINE 14 MG/24 HOURS TOPICAL PATCH TD SCH (10:06)
[2018-08-02] MEDS: PRENATAL VITAMINS W/ FOLIC ACID TABLET (FP) PO SCH (10:06)
[2018-08-02] MEDS: IBUPROFEN 400 MG TABLET (FP) PO PRN (10:07)
[2018-08-02] MEDS: traZODone HCL 50 MG TABLET (FP) PO SCH (21:05)
[2018-08-02] MEDS: MELATONIN 5 MG TABLETS PO PRN (21:05)
[2018-08-02] MEDS: THIAMINE HCL 100 MG TABLET (FP) PO SCH (21:05)
[2018-08-03] MEDS: METHADONE HCL 40 MG DISPERSABLE TABLET PO SCH (06:22)
[2018-08-03] MEDS: NICOTINE 14 MG/24 HOURS TOPICAL PATCH TD SCH (10:11)
[2018-08-03] MEDS: PRENATAL VITAMINS W/ FOLIC ACID TABLET (FP) PO SCH (10:11)
[2018-08-03] MEDS: amLODIPine BESYLATE 5 MG TABLET (FP) PO SCH (10:11)
[2018-08-03] MEDS: IBUPROFEN 400 MG TABLET (FP) PO PRN (10:12)
[2018-08-03] MEDS: MELATONIN 5 MG TABLETS PO PRN (21:11)
[2018-08-03] MEDS: THIAMINE HCL 100 MG TABLET (FP) PO SCH (21:11)
[2018-08-03] MEDS: traZODone HCL 50 MG TABLET (FP) PO SCH (21:11)
[2018-08-04] MEDS: METHADONE HCL 40 MG DISPERSABLE TABLET PO SCH (06:22)
[2018-08-04] MEDS: PRENATAL VITAMINS W/ FOLIC ACID TABLET (FP) PO SCH (09:49)
[2018-08-04] MEDS: NICOTINE 14 MG/24 HOURS TOPICAL PATCH TD SCH (09:50)
[2018-08-04] MEDS: amLODIPine BESYLATE 5 MG TABLET (FP) PO SCH (09:50)
[2018-08-04] MEDS: IBUPROFEN 400 MG TABLET (FP) PO PRN (10:06)
[2018-08-04] MEDS: traZODone HCL 50 MG TABLET (FP) PO SCH (21:30)
[2018-08-04] MEDS: MELATONIN 5 MG TABLETS PO PRN (21:30)
[2018-08-04] MEDS: THIAMINE HCL 100 MG TABLET (FP) PO SCH (21:30)
[2018-08-05] MEDS: METHADONE HCL 40 MG DISPERSABLE TABLET PO SCH (06:04)
[2018-08-05] MEDS: amLODIPine BESYLATE 5 MG TABLET (FP) PO SCH (09:52)
[2018-08-05] MEDS: NICOTINE 14 MG/24 HOURS TOPICAL PATCH TD SCH (09:52)
[2018-08-05] MEDS: PRENATAL VITAMINS W/ FOLIC ACID TABLET (FP) PO SCH (09:53)
[2018-08-05] MEDS: IBUPROFEN 400 MG TABLET (FP) PO PRN (09:53)
[2018-08-05] MEDS: THIAMINE HCL 100 MG TABLET (FP) PO SCH (21:24)
[2018-08-05] MEDS: traZODone HCL 50 MG TABLET (FP) PO SCH (21:24)
[2018-08-05] MEDS: MELATONIN 5 MG TABLETS PO PRN (21:25)
[2018-08-06] MEDS: METHADONE HCL 40 MG DISPERSABLE TABLET PO SCH (06:06)
[2018-08-06] MEDS: PRENATAL VITAMINS W/ FOLIC ACID TABLET (FP) PO SCH (10:03)
[2018-08-06] MEDS: NICOTINE 14 MG/24 HOURS TOPICAL PATCH TD SCH (10:04)
[2018-08-06] MEDS: amLODIPine BESYLATE 5 MG TABLET (FP) PO SCH (10:04)
[2018-08-06] MEDS: MELATONIN 5 MG TABLETS PO PRN (21:29)
[2018-08-06] MEDS: traZODone HCL 50 MG TABLET (FP) PO SCH (21:29)
[2018-08-06] MEDS: THIAMINE HCL 100 MG TABLET (FP) PO SCH (21:29)
[2018-08-07] MEDS: METHADONE HCL 40 MG DISPERSABLE TABLET PO SCH (06:01)
[2018-08-07 07:01] VITALS: BP 131/72; PULSE 79; TEMP 99
--- NOTE | 2018-08-07 08:10 | PN ---
Psychiatric Progress Note Vital Signs: Vital Signs Period Temp Pulse Resp BP Sys/Ramirez Pulse Ox Last 24 Hr 99 F 79-88 18-18 131-139/72-78 Date of Session: 08/07/18 Chief Complaint:: Discharge Note HPI: Patient addressing Alcohol and Cocaine Dependence comorbid with Opioid Dependence on Agonist Therapy, Nicotine Dependence and MDD ROS: Asthma, H/O Anemia, HTN, HLD, PPD+ treated were medically managed Current Medications: Active Medications Generic Name Dose Route Start Last Admin Trade Name Freq PRN Reason Stop Dose Admin Acetaminophen 650 mg 07/28/18 15:34 08/06/18 10:03 Tylenol - PO 650 mg Q4H PRN Administration FEVER Al Hydroxide/Mg Hydroxide 30 ml 07/28/18 15:34 Mylanta Oral Suspension - PO Q6H PRN DYSPEPSIA Albuterol Sulfate 2 puff 07/28/18 15:35 Ventolin Hfa Inhaler - IH Q4H PRN ASTHMA Amlodipine Besylate 5 mg 07/29/18 10:00 08/06/18 10:04 Norvasc - PO 5 mg DAILY NEHA Administration Eucalyptus/Menthol/Phenol/Sorbitol 1 each 07/28/18 15:34 Cepastat Lozenge - MM Q4H PRN SORE THROAT Guaifenesin 10 ml 07/28/18 15:34 Robitussin Dm - PO Q6H PRN COUGH Hydroxyzine Pamoate 50 mg 07/28/18 15:34 Vistaril - PO Q4H PRN AGITATION Ibuprofen 400 mg 07/28/18 15:34 08/05/18 09:53 Motrin - PO 400 mg Q6H PRN Administration Pain Level 4-6 Loperamide HCl 4 mg 07/28/18 15:34 Imodium - PO Q6H PRN DIARRHEA Magnesium Citrate 300 ml 07/28/18 15:34 Citroma - PO Q48H PRN CONSTIPATION Magnesium Hydroxide 30 ml 07/28/18 15:34 Milk Of Magnesia - PO DAILY PRN CONSTIPATION Melatonin 5 mg 07/28/18 22:00 08/06/18 21:29 Melatonin PO 5 mg HS PRN Administration INSOMNIA Methadone HCl 40 mg 08/05/18 06:00 08/07/18 06:01 Dolophine - PO 08/11/18 05:59 40 mg DAILY@0600 NEHA Administration Nicotine 14 mg 07/28/18 16:30 08/06/18 10:04 Nicoderm Patch - TD 14 mg DAILY NEHA Administration Nicotine Polacrilex 2 mg 07/28/18 15:34 Nicorette Gum - BUC Q2H PRN NICOTINE REPLACEMENT RX Multivit/Folic Acid/Iron 1 tab 07/29/18 10:00 08/06/18 10:03 Vitamins (Sjr) - PO 1 tab DAILY NEHA Administration Pseudoephedrine/Triprolidine 1 combo 07/28/18 15:34 Actifed - PO TID PRN NASAL CONGESTION Thiamine HCl 100 mg 07/28/18 22:00 08/06/18 21:29 Vitamin B1 - PO 100 mg HS NEHA Administration Trazodone HCl 50 mg 07/28/18 22:00 08/06/18 21:29 Desyrel - PO 50 mg HS NEHA Administration Current Side Effect: No Lab tests ordered: Yes Lab tests reviewed: Yes Provider note:: Patient has completed this program today. He has met his treatment goals and will continue to address his issues in outpatient treatment at [facility] at [address] [place] [address]. 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 He responded well to Trazadone 50 mg po HS. Script for 30 days supply of that medication is electronically transmitted to [facility] at [address] [place] [address]. He is stable for discharge today Total face to face time:: 35 Mental Status Exam - Mental Status Exam Alert and Oriented to: Time, Place, Person Cognitive Function: Fair Patient Appearance: Well Groomed Mood: Hopeful, Euthymic Affect: Appropriate Patient Behavior: Cooperative Speech Pattern: Clear Voice Loudness: Normal Thought Process: Intact, Goal Oriented Thought Disorder: Not Present Hallucinations: Denies Suicidal Ideation: Denies Homicidal Ideation: Denies Insight/Judgement: Fair Sleep: Fair Appetite: Fair Muscle strength/Tone: Normal Gait/Station: Normal Psychiatric Treatment Plan - Problem List (1) Alcohol dependence Current Visit: Yes (2) Cocaine dependence Current Visit: Yes (3) Opioid dependence on agonist therapy Current Visit: No (4) Nicotine dependence Current Visit: No Qualifiers: Nicotine product type: cigarettes Substance use status: in withdrawal Qualified Code(s): F17.213 - Nicotine dependence, cigarettes, with withdrawal (5) MDD (major depressive disorder), recurrent episode, severe Current Visit: Yes (6) Asthma Current Visit: No Qualifiers: Asthma severity: mild Asthma persistence: intermittent Asthma complication type: with status asthmaticus Qualified Code(s): J45.22 - Mild intermittent asthma with status asthmaticus (7) History of anemia Current Visit: No (8) History of hypercholesterolemia Current Visit: No Comment: NO MEDS (9) Positive PPD, treated Current Visit: No (10) HTN (hypertension) Current Visit: Yes Initial treatment plan: Patient is discharged today and referred to [facility] for outpatient treatment
== END 2018-08-07 08:45 | disposition home or self-care (01) | DRG 772 ==
LOC: YASAS 11:21 → Y3W 11:22
PROVIDERS: ADMIT Psychiatry & Neurology Psychiatry; ATTEND Psychiatry & Neurology Psychiatry
PROC: HZ42ZZZ Group Counseling for Substance Abuse Treatment, Cognitive-Behavioral (ICD-10-PCS; principal; 2018-07-28)
DX: F10.20 Alcohol dependence, uncomplicated (principal); F14.20 Cocaine dependence, uncomplicated; F11.20 Opioid dependence, uncomplicated; F17.210 Nicotine dependence, cigarettes, uncomplicated; F33.2 Major depressive disorder, recurrent severe without psychotic features; F41.9 Anxiety disorder, unspecified; J45.22 Mild intermittent asthma with status asthmaticus; I10 Essential (primary) hypertension; R76.11 Nonspecific reaction to tuberculin skin test without active tuberculosis; Z86.2 Personal history of diseases of the blood and blood-forming organs and certain disorders involving the immune mechanism; Z86.39 Personal history of other endocrine, nutritional and metabolic disease
CPT/HCPCS: 36415; 87389; 90688; G0008